=== PATIENT | female | born 1955 | race Caucasian/White ===

== ENCOUNTER → 2016-12-31 | Outpatient (REF) ==
--- NOTE | 2016-12-31 14:09 | REP ---
CERVICAL SPINE SERIES: THREE VIEWS LIMITED STUDY. HISTORY: Degenerative disc disease. No comparison cervical spine radiographs. FINDINGS: Lateral view shows reversal of the normal cervical lordosis. Cervical vertebral body heights are preserved. There is a fairly advanced degenerative spondylosis noted. Discogenic spurring is seen at C3-4, C4-5, C5-6, and C6-7, and C7-T1. The most pronounced spurring is seen at C5-6 and C6-7. There is advanced osteoarthritic facet disease bilaterally at C2-3 bilaterally. Right-sided C3-4, C4-5, and C5-6 facet hypertrophy is also noted. Open-mouth odontoid view shows mild C1-2 facet osteoarthritis. IMPRESSION: Moderate to advanced degenerative spondylosis. Reversal of the normal cervical lordosis. Signed by Shukri Flores MD 12/31/2016 02:21 P
--- NOTE | 2016-12-31 14:12 | REP ---
THORACIC SPINE SERIES: THREE VIEWS. HISTORY: Degenerative disc disease. FINDINGS: There is a granulomatous calcification in the left lower lobe of the lung. Thoracic vertebral body heights are preserved. There is some straightening. Discogenic spurring is seen in the mid and lower thoracic levels. There is anterior wedge deformity at the L1 vertebral body, which appears to be old. Secondary osteophyte formation is seen. This is unchanged from sagittal reformatted images from chest CT study [facility] dated January 02, 2016. No bony destructive lesion is seen. There are degenerative disc changes in the cervical spine as well. IMPRESSION: Degenerative spondylosis in the mid thoracic spine. Old wedge collapse deformity seen at L1, unchanged. Signed by Shukri Flores MD 12/31/2016 02:21 P
== END ==
LOC: M SMT 12:48
PROVIDERS: ATTEND Internal Medicine
DX: Z02.71 Encounter for disability determination (principal)

== ENCOUNTER 2021-02-15 13:27 | Inpatient (IN) | payer MEDICARE, OTHER ==
[~2021-02-15] VITALS: Ht 167.6 cm; Wt 64.0 kg
[2021-02-15] MEDS ORDERED: GABA600T4 PO (13:45)
[2021-02-15] MEDS ORDERED: NS 1,000 ML IV ONE ×3 (14:20→18:25)
[2021-02-15 14:49] LABS: ABG BASE EXCESS -0.8 (-2.0-2.0); ABG HCO3 21.3 MEQ/L (22.0-26.0); ABG O2 SATURATION 96.1 % (95.0-99.0); ABG PARTIAL PRESSURE CO2 29.3 mmHg (35.0-45.0); ABG PARTIAL PRESSURE O2 82.9 mmHg (75.0-100.0); ABG STANDARD HCO3 23.8 MEQ/L (22.0-26.0); ABG TOTAL CO2 22.2 MEQ/L (23.0-31.0); ABG pH (ARTERIAL) 7.479 UNITS (7.350-7.450)
[2021-02-15 15:30] LABS: BASO % 0.2 % (0.0-1.0); HEMATOCRIT 49.5 % (36.0-47.0); HEMOGLOBIN 17.3 g/dl (12.0-15.5); LYMPH # 1.4 10^3/uL (1.5-5.0); LYMPH % 7.7 % (24.0-44.0); MEAN CORPUSCULAR HEMOGLOBIN 32.7 pg (27.0-33.0); MEAN CORPUSCULAR HGB CONC 34.9 g/dl (32.0-36.5); MEAN CORPUSCULAR VOLUME 93.6 fl (80.0-96.0); MONO % 5.7 % (2.0-8.0); NEUTROPHILS # 15.4 10^3/uL (1.5-8.5); NEUTROPHILS % 85.7 % (36.0-66.0); PLATELET COUNT, AUTOMATED 254 10^3/uL (150-450); RED BLOOD COUNT 5.29 10^6/uL (4.00-5.40)
[2021-02-15 15:45] LABS: INR 0.9; PROTHROMBIN TIME 12.3 SECONDS (12.5-14.3)
[2021-02-15 15:46] LABS: PARTIAL THROMBOPLASTIN TIME 24.7 SECONDS (24.2-38.5)
[2021-02-15 16:01] LABS: OSMOLALITY SERUM 311 MOSM/KG (280-301)
[2021-02-15 16:23] LABS: ACETAMINOPHEN LEVEL < 2.0 UG/ML (10.0-30.0); ALBUMIN 3.7 GM/DL (3.2-5.2); ALT/SGPT 96 U/L (12-78); BILIRUBIN,DIRECT 0.2 MG/DL (0.0-0.2); BLOOD UREA NITROGEN 68 MG/DL (7-18); CALCIUM LEVEL 9.6 MG/DL (8.8-10.2); CARBON DIOXIDE LEVEL 26 MEQ/L (21-32); CHLORIDE LEVEL 106 MEQ/L (98-107); CK-MB VALUE MASS 48.7 NG/ML (<3.6); CPK CREATINE PHOSPHOKINASE 10308 U/L (26-192); ETHYL ALCOHOL (ETHANOL) < 0.003 % (0.000-0.010); GLOMERULAR FILTRATION RATE 28.2 (>45); GLUCOSE, FASTING 124 MG/DL (70-100); MB/CK RELATIVE INDEX 0.47 (< OR =4); POTASSIUM SERUM 3.9 MEQ/L (3.5-5.1); SALICYLATE LEVEL 3.3 MG/DL (5.0-30.0); SODIUM LEVEL 140 MEQ/L (136-145); TOTAL PROTEIN 7.3 GM/DL (6.4-8.2); TROPONIN I 0.32 NG/ML (< 0.10)
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
--- NOTE | 2021-02-15 19:15 | ECGEPIP ---
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
[2021-02-15] MEDS ORDERED: PROP10TA56 PO (19:46)
[2021-02-15] MEDS ORDERED: BUPR300T92 PO (19:46)
[2021-02-15] MEDS ORDERED: FLUO40CA PO (19:46)
[2021-02-15] MEDS ORDERED: METH20TA31 PO (19:46)
[2021-02-15] MEDS ORDERED: PANT40TA29 PO (19:46)
[2021-02-15] MEDS ORDERED: ATOR1TAB21 PO (19:46)
[2021-02-15] MEDS ORDERED: METF500T13 PO (19:47)
[2021-02-15 20:06] LABS: AMPHETAMINES LEVEL URINE NEGATIVE (NEGATIVE); BARBITURATES URINE NEGATIVE (NEGATIVE); BENZODIAZEPINES URINE NEGATIVE (NEGATIVE); CANNABINOIDS URINE NEGATIVE (NEGATIVE); COCAINE METABOLITE URINE NEGATIVE (NEGATIVE); METHADONE URINE NEGATIVE (NEGATIVE); OPIATES URINE NEGATIVE (NEGATIVE); PHENCYCLIDINE URINE NEGATIVE (NEGATIVE)
[2021-02-15] MEDS ORDERED: LIDOCAINE VISCOUS 2% SOLN 15ML UDC SSP ONE (20:55)
[2021-02-15] MEDS ORDERED: THIAMINE 100 MG TAB PO SCH (21:00)
[2021-02-15] MEDS ORDERED: NS 1,000 ML IV SCH (21:25)
--- NOTE | 2021-02-15 21:34 | HPEPDOC ---
[facility] Medical History & Physical Date of Admission February 15, 2021 Date of Service: February 15, 2021 Attending Physician: CLARA KEITH MD History and Physical CHIEF COMPLAINT: altered mental status, bruising HISTORY OF PRESENT ILLNESS: Carola Spann is a 65 year old female who presented to the ED after her daughter found her this morning with multiple new bruises and altered mental status. Daughter states the patient was known to be in her normal state of health on Thursday night when she was with her sister. Per daughter, patient was drinking that night which is not abnormal for her. Patient does not recall any details of the past few days. She states she remembers falling asleep on the couch last night and waking up with extensive bruising and pain in her mouth. She states she has not been drinking any alcohol or using any other substances. Patient states she has not been in contact with any other people since Thursday. Daughter feels this is not true and states she is going to check the patient's phone at home to better understand what has been going on the past few days. Patient states she is currently having aching over her body and pain in her mouth. PAST MEDICAL HISTORY: Back pain from degenerative disk disease HTN, not currently taking medication PAST SURGICAL HISTORY: KATTY with BSO for cysts SOCIAL HISTORY: Current smoker, cannot say how much, states 1 pack every month but daughter disagrees. Unclear alcohol use history. Patient denies alcohol intake. Daughter reports patient drinks vodka most days. History of drug abuse with reported OD on oral opiates 5 years ago per daughter. Patient denies any current use. Lives alone with 1 cat. FAMILY HISTORY: Patient unsure of family history. ALLERGIES: Please see below. REVIEW OF SYSTEMS: 10-point review of systems negative except as listed in HPI HOME MEDICATIONS: Please see below. PHYSICAL EXAMINATION: VITAL SIGNS: See below GENERAL: Alert, comfortable, in no acute distress HEENT: Normocephalic, atraumatic, sclera anicteric, moist mucous membranes, there are multiple open lesions on bilateral edges of the tongue NECK: Supple, trachea midline, no lymphadenopathy CARDIOVASCULAR: Regular rate and rhythm, normal S1 and S2. No murmurs, rubs, or gallops RESPIRATORY: Clear to auscultation bilaterally with equal air entry bilaterally. No wheezing, rhonchi, or rales. ABDOMEN: Soft, nontender, nondistended, bowel sounds present, no masses or hepatosplenomegaly appreciated EXTREMITIES: No cyanosis or edema. Pulses 2+/4 in bilateral upper and lower extremities SKIN: Bruising noted over the extremities, bilateral shoulder blades, right eye, and chest. Bilateral knees with abrasions. NEUROLOGIC: Alert and oriented x2 to person and place, she is not oriented to time. No focal deficits appreciated PSYCHIATRIC: Mood and affect appropriate LABORATORY DATA: See below. IMAGING: (per radiologist reports) - CT cervical spine 1. No acute abnormality. 2. Chronic findings as discussed above - CT head 1. Mildly limited exam due to motion artifact 2. Small area of subcortical edema in the right frontal lobe of uncertain etiology. A follow-up MRI is suggested. - CT lumbar spine No acute fracture in the lumbar spine. - Maxillofacial CT No acute fracture. - CT Thoracic spine 1. Degenerative changes as above. 2. No acute thoracic spinal bony abnormality identified. 3. Please see the lumbar spine CT report of the same date for the lumbar spine findings. - CT Abdomen/pelvis 1. Lack of IV contrast reduces sensitivity to abdominal solid visceral organ traumatic injury. IV contrast enhanced imaging may add additional useful information if not contraindicated. 2. Possible gastritis. Clinical correlation with the patient's specific symptomatology is recommended. 3. Right renal calyceal lithiasis. 4. Prior hysterectomy. 5. No acute injury identified. 6. Please see the CT chest report of the same date for additional findings. - CT Chest 1. No acute injury identified. 2. Pulmonary emphysema. 3. Coronary atherosclerosis. 4. Minimal pericardial effusion. 5. Please see the abdomen/pelvis CT report of the same date for additional findings. - Elbow XR There is no acute fracture, dislocation, subluxation, or joint effusion. - Humerus XR Chronic changes - Wrist XR No acute fracture or destructive osseous lesion. - Knee XR Chronic changes bilateral MICROBIOLOGY: Please see below. ASSESSMENT: 65 year old female with PMHx of back pain, HTN, and drug/alcohol abuse, presents with multiple bruises and altered mentation, found to have elevated CPK and Cr, admitted for treatment of rhabdomyolysis and CALLIE PLAN: # Rhabdomyolysis - 2/2 physical trauma vs intoxication - s/p 3 L IV fluid bolus in ED. Continue IV fluids at 200ml/hr - monitor electrolytes and replete as appropriate - monitor on telemetry # CALLIE - Likely prerenal 2/2 above. Check urine electrolytes - UA shows possible infection, patient asymptomatic, will hold off on abx pending urine culture - IV fluids as above # AMS - tox screen negative. alcohol level negative - may be related to rhabdomyolysis vs baseline dementia vs recent trauma - blood cultures pending, urine culture pending. Currently low suspicion for infection, no antibiotics. - ammonia level slightly elevated, recheck on AM labs - CT head reveals small abnormality, ordered f/u MRI brain # Bruising likely 2/2 trauma - extensive imaging revealed no acute concerns - pt with no memory of how bruising occurred. - tongue lesions likely could be from biting down considering their location vs [place] less likely as the salazar are only on the side of the tongue and not the top. - based on the history and PE, high suspicion of abuse. PFS consult. # Alcohol abuse - no apparent withdrawal symptoms currently - monitor CIWA - IV thiamin 500mg TID x 3 days - PO folic acid and multivitamin # Transaminitis - pattern suggestive of alcoholic hepatitis, trend daily # Back pain - hold gabapentin for now due to AMS DVT prophylaxis: sc heparin Disposition: admitted to med/surg pending clinical improvement Vital Signs Vital Signs Date Time Temp Pulse Resp B/P (MAP) Pulse Ox O2 Delivery O2 Flow Rate FiO2 02/15/21 20:12 94 16 97 Room Air 02/15/21 19:38 160/74 (102) 02/15/21 13:29 97.2 Laboratory Data Labs 24H Laboratory Tests 2 02/15/21 13:27: Blood Gas Bicarbonate Standard 23.8, Arterial Blood pH 7.479H, Arterial Blood Partial Pressure CO2 29.3L, Arterial Blood Partial Pressure O2 82.9, Arterial Blood Total CO2 22.2L, Arterial Blood HCO3 21.3L, Arterial Blood Base Excess - 0.8, Arterial Blood Oxygen Saturation 96.1 02/15/21 15:08: Immature Granulocyte % (Auto) 0.7, Neutrophils (%) (Auto) 85.7H, Lymphocytes (%) (Auto) 7.7L, Monocytes (%) (Auto) 5.7, Eosinophils (%) (Auto) 0.0, Basophils (%) (Auto) 0.2, Neutrophils # (Auto) 15.4H, Lymphocytes # (Auto) 1.4L, Monocytes # (Auto) 1.0H, Eosinophils # (Auto) 0.0, Basophils # (Auto) 0.0, Nucleated Red Blood Cells % (auto) 0.0, Prothrombin Time 12.3, Prothromb Time International Ratio 0.90, Activated Partial Thromboplast Time 24.7L, Anion Gap 8, Glomerular Filtration Rate 28.2L, Osmolality 311H, Lactic Acid Level 2.0, Calcium Level 9.6, Total Bilirubin 1.0, Direct Bilirubin 0.2, Aspartate Amino Transf (AST/SGOT) 314H, Alanine Aminotransferase (ALT/SGPT) 96H, Alkaline Phosphatase 86, Ammonia 35H, Total Creatine Kinase 97378L, Creatine Kinase MB 48.7H, Creatine Kinase MB Relative Index 0.47, Troponin I 0.32H, Total Protein 7.3, Albumin 3.7, Albumin/Globulin Ratio 1.0L, Thyroid Stimulating Hormone (TSH) 1.570, Salicylates Level 3.3L, Acetaminophen Level < 2.0L, Ethyl Alcohol Level < 0.003 02/15/21 17:06: Urine Color YELLOW, Urine Appearance CLOUDYH, Urine pH 5.0, Urine Specific [place] 1.020, Urine Protein 2+H, Urine Glucose (UA) NEGATIVE, Urine Ketones NEGATIVE, Urine Blood 2+H, Urine Nitrite NEGATIVE, Urine Bilirubin NEGATIVE, Urine Urobilinogen 0.2, Urine Leukocyte Esterase 1+H, Urine WBC (Auto) 12H, Ur ine RBC (Auto) 2, Urine Hyaline Casts (Auto) 29, Urine Bacteria (Auto) NEGATIVE, Urine Squamous Epithelial Cells 2, Urine Mucus (Auto) SMALL, Urine Sperm (Auto) , Urine Opiates Screen NEGATIVE, Urine Methadone Screen NEGATIVE, Urine Barbiturates Screen NEGATIVE, Urine Phencyclidine Screen NEGATIVE, Urine Amphetamines Screen NEGATIVE, Urine Benzodiazepines Screen NEGATIVE, Urine Cocaine Metabolite Screen NEGATIVE, Urine Cannabinoids Screen NEGATIVE CBC/BMP Laboratory Tests 02/15/21 15:08 Microbiology Microbiology 02/15/21 Respiratory Virus Panel (PCR) ([facility]) - Final, Complete 02/15/21 Blood Culture, Received Pending 02/15/21 Urine Culture, Received Pending 02/15/21 Blood Culture, Received Pending Home Medications Scheduled Gabapentin (Gabapentin) 600 Mg Tablet, 600 MG PO TID Allergies Coded Allergies: No Known Allergies (Verified Allergy, Unknown, 02/15/21) GME ATTESTATION GME ATTESTATION My faculty preceptor for this patient encounter was physically present during the encounter and was fully available. All aspects of the patient interview, examination, medical decision making process, and medical care plan development were reviewed and approved by the faculty preceptor. The faculty preceptor is aware and concurs with the plan as stated in the body of this note and will attest to such by his/her cosignature. ATTENDING NOTE I, Diana Keith, have independently examined this patient and performed my own physical exam, as well as reviewed the documentation and edited where necessary. I have discussed in detail with the resident / student the findings and plan of treatment as documented by the resident / student and edited their note. I agree with their findings and treatment plan and have edited their documentation. I will continue to follow the patient during this hospital stay. BENITA MCGOWAN D.O. February 15, 2021 21:34 CLARA KEITH MD February 18, 2021 02:25
[2021-02-15] MEDS ORDERED: THIAMINE 200MG/2ML VIAL (J3411 PER 100MG) IV SCH (21:40)
[2021-02-15 22:41] LABS: POTASSIUM RANDOM URINE 42.6 MEQ/L; SODIUM,RANDOM URINE < 10 MEQ/L
[2021-02-15 23:30] VITALS: BP 138/63
[2021-02-15] MEDS: THIAMINE INJection 500 MG in NS 100 ML IV SCH (23:42)
[2021-02-16 02:21] LABS: CREATININE FOR GFR 0.99 MG/DL (0.55-1.30); GLOMERULAR FILTRATION RATE 59.9 (>45); MAGNESIUM LEVEL 1.6 MG/DL (1.8-2.4); POTASSIUM SERUM 3.1 MEQ/L (3.5-5.1); TROPONIN I 0.27 NG/ML (< 0.10)
[2021-02-16] MEDS ORDERED: MAG SULF 1GM/100ML (MAG RUN) 1 GM in IV 1 EA IV ONE (02:35)
[2021-02-16] MEDS ORDERED: POTASSIUM CHLORIDE 10 MEQ SR TABLET PO ONE (02:35)
[2021-02-16] MEDS: LORazepam 2 MG TAB PO PRN (03:24)
[2021-02-16 03:27] VITALS: BP 151/72
[2021-02-16 03:28] VITALS: BP 151/72
[2021-02-16] MEDS: KCL 20MEQ in NS 1000ML 1,000 ML IV SCH ×4 (03:41→17:47)
[2021-02-16 05:05] LABS: HEMATOCRIT 36.9 % (36.0-47.0); MEAN CORPUSCULAR HGB CONC 34.4 g/dl (32.0-36.5); MEAN CORPUSCULAR VOLUME 95.8 fl (80.0-96.0); PLATELET COUNT, AUTOMATED 201 10^3/uL (150-450); RED BLOOD COUNT 3.85 10^6/uL (4.00-5.40); WHITE BLOOD COUNT 13.6 10^3/uL (4.0-10.0)
[2021-02-16 05:06] LABS: HEMOGLOBIN 12.7 g/dl (12.0-15.5)
[2021-02-16 05:50] LABS: ALBUMIN 2.8 GM/DL (3.2-5.2); ALT/SGPT 91 U/L (12-78); BILIRUBIN,TOTAL 0.8 MG/DL (0.2-1.0); BLOOD UREA NITROGEN 34 MG/DL (7-18); CALCIUM LEVEL 8.2 MG/DL (8.8-10.2); CARBON DIOXIDE LEVEL 27 MEQ/L (21-32); CHLORIDE LEVEL 117 MEQ/L (98-107); GLOMERULAR FILTRATION RATE > 60.0 (>45); GLUCOSE, FASTING 108 MG/DL (70-100); POTASSIUM SERUM 3.5 MEQ/L (3.5-5.1); SODIUM LEVEL 147 MEQ/L (136-145); TOTAL PROTEIN 5.5 GM/DL (6.4-8.2)
[2021-02-16] MEDS: HEPARIN SOD (PORCINE) 5000UNITS/ML 1ML VIAL/SYRINGE SC SCH ×3 (06:47→21:37)
[2021-02-16] MEDS: THIAMINE INJection 500 MG in NS 100 ML IV SCH ×3 (11:10→21:37)
[2021-02-16] MEDS: MULTIVITAMINS/MINERALS THERAP 1 TAB PO SCH (11:10)
[2021-02-16] MEDS: FOLIC ACID 1 MG TAB PO SCH (11:10)
[2021-02-16 12:00] VITALS: BP 156/66
[2021-02-16] MEDS ORDERED: ISOVUE-370 76% 100ML VIAL As Ordered ONE (14:36)
[2021-02-16] MEDS: MAGIC MOUTHWASH SUSPENSION BTL SSP PRN ×2 (15:32→21:40)
--- NOTE | 2021-02-16 15:56 | REPVR ---
PROCEDURE INFORMATION: Exam: CT Head Without And With Contrast Exam date and time: 02/16/2021 2:42 PM Age: 65 years old Clinical indication: RT frontal lobe edema. TECHNIQUE: Imaging protocol: Computed tomography of the head without and with intravenous contrast. Radiation optimization: All CT scans at this facility use at least one of these dose optimization techniques: automated exposure control; mA and/or kV adjustment per patient size (includes targeted exams where dose is matched to clinical indication); or iterative reconstruction. Contrast material: ISOVUE 370; Contrast volume: 75 ml; Contrast route: INTRAVENOUS (IV); COMPARISON: CT Head without contrast 02/15/2021 4:33 PM FINDINGS: Brain: Low density in the right frontal lobe was described on patient's prior CT scan and is likely due to volume averaging through a prominent sulcus. This is not definite. Cerebral ventricles: No ventriculomegaly. Bones/joints: Unremarkable. No acute fracture. Paranasal sinuses: Visualized sinuses are unremarkable. No fluid levels. Mastoid air cells: Visualized mastoid air cells are well aerated. Soft tissues: There is a left parietal developmental venous anomaly. IMPRESSION: Low density in the right frontal lobe was described on patient's prior CT scan and is likely due to volume averaging through a prominent sulcus. This is not definite. If this happens to correspond to patient's clinical symptoms, follow-up MRI would be recommended. Electronically signed by: Michelet Cooper On 02/16/2021 15:55:53 PM
[2021-02-16 16:00] VITALS: BP 198/88
[2021-02-16] MEDS: amLODIPine 5 MG TAB PO SCH (17:04)
[2021-02-16] MEDS: LIDOCAINE VISCOUS 2% SOLN 15ML UDC SSP PRN (17:47)
--- NOTE | 2021-02-16 19:32 | IPNPDOC ---
Subjective Date Seen The patient was seen on 02/16/21. Subjective Chief Complaint/HPI Mrs. Spann is a 65 year old female with history of smoking and alcohol use who is here for confusion and AMS. This morning, attempted MRI, but patient could not remember that she was in the MRI and kept moving. Spoke with neurology. Neurology recommended trying CT head without and with contrast if we can't get MRI today. Otherwise, saw her again this afternoon with daughter present. Looked about tongue. Patient has two large white ulcers of tongue which are painful. Due to her history of smoking and alcohol use possible oral cancer. Objective Physical Examination General Exam: Positive: Alert, Cooperative Eye Exam: Negative: Sclera icteric ENT Exam: Positive: Other ENT (large ulcers on tongue) Neck Exam: Positive: Supple Chest Exam: Positive: Clear to auscultation Heart Exam: Positive: Rate Normal, Regular Rhythm Abdomen Exam: Positive: Normal bowel sounds, Soft; Negative: Tenderness Extremity Exam: Negative: Edema Neuro Exam: Positive: Normal Speech Psych Exam: Positive: Mental status NL, Mood NL Assessment /Plan Assessment Mrs. Spann is a 65 year old female with history of smoking and alcohol use who is here for confusion and AMS. This morning she was still confused, but appeared better by this afternoon. Otherwise, she still has rhabdomyolysis. Will check CPK tomorrow. Patient has tongue pain and large while ulcers on tongue. Spoke with ENT. They recommended biopsy outpatient. Plan/VTE VTE Prophylaxis Ordered?: Yes Plan 1. Rhabdomyolysis -IVF -Will check CPK tomorrow 2. CALLIE -2/2 rhabdomyolysis -Improved 3. AMS -CT head demonstrate abnormality -Will try to obtain MRI tomorrow 4. Tongue ulcer -Viral vs Cancer -Risk factors include smoking and alcohol -Spoke with ENT, would need to do outpatient -Magic mouthwash and lidocaine viscus for pain control 5. Alcohol abuse -CIWA -Thiamine, folic acid, and multivitamin 6. DVT ppx -Subq heparin Disposition: Pending improvement in rhabdomyolysis. Would also try to get MRI again. VS, I&O, 24H, Fishbone Vital Signs/I&O Vital Signs Date Time Temp Pulse Resp B/P (MAP) Pulse Ox O2 Delivery O2 Flow Rate FiO2 02/16/21 17:04 84 198/88 02/16/21 12:00 98.1 19 95 Room Air I&O- Last 24 Hours up to 6 AM 02/16/21 06:00 Intake Total 3962 ml Output Total 150 ml Balance 3812 ml Laboratory Data 24H LABS Laboratory Tests 2 02/16/21 01:43: Anion Gap 4L, Glomerular Filtration Rate 59.9, Calcium Level 8.0#L, Magnesium Level 1.6L, Troponin I 0.27H 02/16/21 04:46: Anion Gap 3L, Glomerular Filtration Rate > 60.0, Calcium Level 8.2L, Nucleated Red Blood Cells % (auto) 0.0, Total Bilirubin 0.8, Aspartate Amino Transf (AST/SGOT) 259H, Alanine Aminotransferase (ALT/SGPT) 91H, Alkaline Phosphatase 62, Ammonia 37H, Total Protein 5.5#L, Albumin 2.8#L, Albumin/Globulin Ratio 1.0L CBC/BMP Laboratory Tests 02/16/21 01:43 02/16/21 04:46 Microbiology Microbiology 02/15/21 Respiratory Virus Panel (PCR) ([facility]) - Final, Complete 02/15/21 Blood Culture - Preliminary, Resulted No growth after 24 hours . All specim... 02/15/21 Urine Culture, Received Pending 02/15/21 Blood Culture - Preliminary, Resulted No growth after 24 hours . All specim... GEN MUELLER DO February 16, 2021 19:32
[2021-02-16 21:35] VITALS: BP 177/84
[2021-02-17] MEDS: KCL 20MEQ in NS 1000ML 1,000 ML IV SCH ×2 (00:47→06:16)
[2021-02-17] MEDS: ACETAMINOPHEN TAB 650MG DOSE (2X325MG) PO PRN ×2 (00:48→20:20)
[2021-02-17 04:37] VITALS: BP 168/76
[2021-02-17 05:07] LABS: HEMATOCRIT 35.9 % (36.0-47.0); HEMOGLOBIN 12.3 g/dl (12.0-15.5); MEAN CORPUSCULAR HEMOGLOBIN 33.5 pg (27.0-33.0); MEAN CORPUSCULAR HGB CONC 34.3 g/dl (32.0-36.5); MEAN CORPUSCULAR VOLUME 97.8 fl (80.0-96.0); PLATELET COUNT, AUTOMATED 214 10^3/uL (150-450); RED BLOOD COUNT 3.67 10^6/uL (4.00-5.40); WHITE BLOOD COUNT 8.5 10^3/uL (4.0-10.0)
[2021-02-17 05:51] LABS: BLOOD UREA NITROGEN 10 MG/DL (7-18); CARBON DIOXIDE LEVEL 28 MEQ/L (21-32); CHLORIDE LEVEL 116 MEQ/L (98-107); CPK CREATINE PHOSPHOKINASE 3738 U/L (26-192); CREATININE FOR GFR 0.64 MG/DL (0.55-1.30); GLOMERULAR FILTRATION RATE > 60.0 (>45); GLUCOSE, FASTING 111 MG/DL (70-100); MAGNESIUM LEVEL 1.3 MG/DL (1.8-2.4); POTASSIUM SERUM 3.6 MEQ/L (3.5-5.1); SODIUM LEVEL 147 MEQ/L (136-145)
[2021-02-17] MEDS: HEPARIN SOD (PORCINE) 5000UNITS/ML 1ML VIAL/SYRINGE SC SCH ×3 (06:16→21:51)
[2021-02-17] MEDS: MAG SULF 1GM/100ML (MAG RUN) 1 GM in IV 1 EA IV SCH ×2 (06:16→08:19)
[2021-02-17 08:00] VITALS: BP 164/76
[2021-02-17] MEDS: amLODIPine 5 MG TAB PO SCH (08:18)
[2021-02-17] MEDS: FOLIC ACID 1 MG TAB PO SCH (08:18)
[2021-02-17] MEDS: MULTIVITAMINS/MINERALS THERAP 1 TAB PO SCH (08:18)
[2021-02-17] MEDS: THIAMINE INJection 500 MG in NS 100 ML IV SCH (08:19)
[2021-02-17] MEDS: LIDOCAINE VISCOUS 2% SOLN 15ML UDC SSP PRN ×2 (09:00→13:00)
[2021-02-17] MEDS: MAGIC MOUTHWASH SUSPENSION BTL SSP PRN (09:00)
--- NOTE | 2021-02-17 12:30 | REPVR ---
PROCEDURE INFORMATION: Exam: MR Head Without Contrast Exam date and time: 02/17/2021 7:13 AM Age: 65 years old Clinical indication: Altered mental status/memory loss; Confusion or disorientation; Patient HX: HX fall, AMS; Additional info: Right frontal lobe abnormality seen on CT TECHNIQUE: Imaging protocol: MR of the head without contrast. COMPARISON: CT Head W/O FOLL BY WITH CONTR 02/16/2021 2:40 PM FINDINGS: Brain: Two small areas of restricted diffusion in the high right parietal lobe measuring up to 4 mm representing embolic acute infarcts. Additionally there is a small area of restricted diffusion in the right occipital lobe may represent another small area acute infarct. Somewhat confluent areas of symmetrical FLAIR signal abnormalities in bilateral parietal lobes and and occipital lobes. Mild small vessel ischemic changes. Cerebral ventricles: Ventricles and sulci are enlarged representing moderate volume loss. Bones/joints: Unremarkable. Paranasal sinuses: Mucosal thickening of the ethmoidal air cells and bilateral maxillary sinuses. Mastoid air cells: Normal as visualized. No mastoid effusion. Orbital cavity: Unremarkable. Soft tissues: Unremarkable. IMPRESSION: Two small areas of restricted diffusion in the high right parietal lobe measuring up to 4 mm representing embolic acute infarcts. Additionally there is a small area of restricted diffusion in the right occipital lobe may represent another small area acute infarct. Somewhat confluent areas of symmetrical FLAIR signal abnormalities in bilateral parietal lobes and and occipital lobes. Findings are nonspecific, differential diagnosis would include encephalopathy, metabolic causes, hypertension, clinical correlation is recommended. Critical findings: Findings discussed with Dr. Maurer at the time of interpretation. Electronically signed by: Casie Ruggiero On 02/17/2021 12:29:40 PM
[2021-02-17] MEDS ORDERED: ISOVUE-370 76% 100ML VIAL As Ordered ONE (14:24)
--- NOTE | 2021-02-17 15:34 | REP ---
INDICATION: Assess stenosis COMPARISON: None TECHNIQUE: Carotid ultrasonography was performed bilaterally FINDINGS: There is a minimal amount of echogenic material seen along the carotid arterial marshall some of which casts and acoustic shadow. Right: CCA systolic 87.4 centimeters/second: CCA diastolic: 21.6 centimeters/second ICA systolic: 85.1 centimeters/second ICA diastolic: 18.0 centimeters/second ICA CCA ratio: 0.7 Left: CCA systolic: 120 centimeters/second CCA diastolic: 20 centimeters/second ICA systolic: 62.1 centimeters/second ICA diastolic: 17.3 centimeters/second ICA CCA ratio: 0.5 Vertebral artery: Right: Antegrade flow left: Antegrade flow IMPRESSION: According to the SRU criteria there is less than 50% stenosis of the internal carotid artery bilaterally. <Electronically signed by Aydin Morales > 02/17/21 [id number]
[2021-02-17] MEDS: ASPIRIN 81MG ENTERIC TABLET PO SCH (15:39)
[2021-02-17] MEDS: LR 1,000 ML IV SCH (15:40)
--- NOTE | 2021-02-17 16:18 | REPVR ---
PROCEDURE INFORMATION: Exam: CT Angiography Head With Contrast, Arteriography Exam date and time: 02/17/2021 2:51 PM Age: 65 years old Clinical indication: Condition or disease; Infarction; Additional info: CVA TECHNIQUE: Imaging protocol: Computed tomography angiography of the head with contrast. Exam focused on the arteries. 3D rendering (Not supervised by radiologist): MIP and/or 3D reconstructed images were created by the technologist. Radiation optimization: All CT scans at this facility use at least one of these dose optimization techniques: automated exposure control; mA and/or kV adjustment per patient size (includes targeted exams where dose is matched to clinical indication); or iterative reconstruction. Contrast material: ISOVUE 370; Contrast volume: 75 ml; Contrast route: INTRAVENOUS (IV); COMPARISON: CT Head W/O FOLL BY WITH CONTR 02/16/2021 2:40 PM FINDINGS: ANTERIOR CIRCULATION: Right internal carotid artery: There is mild calcification of the intracranial right internal carotid artery. No significant degrees of stenosis, thrombosis, or occlusion. No evidence of aneurysm. Right middle cerebral artery: Unremarkable. No occlusion or significant stenosis. No aneurysm. Right anterior cerebral artery: Unremarkable. No occlusion or significant stenosis. No aneurysm. Left internal carotid artery: There is mild calcification of the intracranial left internal carotid artery. No significant degrees of stenosis, thrombosis, or occlusion. No evidence of aneurysm. Left middle cerebral artery: Unremarkable. No occlusion or significant stenosis. No aneurysm. Left anterior cerebral artery: A1 segment of left anterior cerebral artery is small and A2 segment is therefore predominately supplied from contralateral side via anterior communicating artery. No stenosis or occlusion. No evidence of aneurysm. POSTERIOR CIRCULATION: Right vertebral artery: Unremarkable. No occlusion or significant stenosis. No aneurysm. Left vertebral artery: Unremarkable. No occlusion or significant stenosis. No aneurysm. Basilar artery: Unremarkable. No occlusion or significant stenosis. No aneurysm. Right posterior cerebral artery: Unremarkable. No occlusion or significant stenosis. No aneurysm. Left posterior cerebral artery: P1 segment of left posterior cerebral artery is small with a posterior communicating artery supplying P2 segment. No stenosis or occlusion. No evidence of aneurysm. Veins: Cerebral venous structures are intact without thrombosis. Note is made of a left frontal developmental venous anomaly draining from subependymal region to left cortical vein. IMPRESSION: 1. No evidence of significant intracranial stenosis, occlusion, or thrombosis. 2. Left frontal developmental venous anomaly. Electronically signed by: Nan Navarro On 02/17/2021 16:17:55 PM
[2021-02-17] MEDS: hydrALAZINE 20MG/ML 1ML VIAL (J0360 PER 20MG) IV PRN (17:23)
[2021-02-17] MEDS ORDERED: ONDANSETRON 4MG/2ML VIAL As Ordered ONE (17:42)
[2021-02-17] MEDS ORDERED: ONDANSETRON 4MG/2ML VIAL IV PRN (17:45)
[2021-02-17 20:00] VITALS: BP 167/92
--- NOTE | 2021-02-17 20:26 | IPNPDOC ---
Subjective Date Seen The patient was seen on 02/17/21. Subjective Chief Complaint/HPI Mrs. Spann is a 65 year old female with history of smoking and alcohol use who is here for confusion and AMS. This morning, she still reports tongue pain and pain with swallowing. We were able to obtain MRI brain which demonstrated two small embolic strokes. Ordered for CT angio head and US carotids which were both negative for significant stenosis. Otherwise, this afternoon, her tongue looks better. Objective Physical Examination General Exam: Positive: Alert, Cooperative Eye Exam: Negative: Sclera icteric ENT Exam: Positive: Other ENT (large ulcers on tongue) Neck Exam: Positive: Supple Chest Exam: Positive: Clear to auscultation Heart Exam: Positive: Rate Normal, Regular Rhythm Abdomen Exam: Positive: Normal bowel sounds, Soft; Negative: Tenderness Extremity Exam: Negative: Edema Neuro Exam: Positive: Normal Speech Psych Exam: Positive: Mental status NL, Mood NL Assessment /Plan Assessment Mrs. Spann is a 65 year old female with history of smoking and alcohol use who is here for confusion and AMS. This morning she was still confused, but appeared better by this afternoon. Otherwise, she still has rhabdomyolysis. Patient has tongue pain and large while ulcers on tongue. Spoke with ENT. They recommended biopsy outpatient. Re-evaluated tongue on 02/17. The white part of the ulcer cleared up, but still ulcer present with red base. Would still recommend patient following up with ENT outpatient. MRI demonstrates two small acute embolic stroke. Located in the right parietal lobe and right occipital lobe. CT angio head and US carotid was negative for stenosis. Pending echocardiogram, HbA1c, and lipid panel. Starting aspirin today. No statin due to rhabdomyolysis. Plan/VTE VTE Prophylaxis Ordered?: Yes Plan 1. Rhabdomyolysis -IVF -Will check CPK tomorrow 2. CALLIE -2/2 rhabdomyolysis -Improved 3. CVA -MRI demonstrates two small acute embolic stroke. Located in the right parietal lobe and right occipital lobe. -CT angio head and US carotid was negative for stenosis -Pending echocardiogram, HbA1c, and lipid panel -Starting aspirin today. No statin due to rhabdomyolysis. 4. Tongue ulcer -Viral vs Cancer -Risk factors include smoking and alcohol -Spoke with ENT, would need to do outpatient -Magic mouthwash and lidocaine viscus for pain control 5. Alcohol abuse -CIWA -Thiamine, folic acid, and multivitamin 6. DVT ppx -Subq heparin Disposition: Pending improvement in rhabdomyolysis. Pending rest of stroke work up. Patient feels weak ambulating. Would order PT. Patient also concerned of swallowing due to odynophagia. Will order Swallow eval. VS, I&O, 24H, Fishbone Vital Signs/I&O Vital Signs Date Time Temp Pulse Resp B/P (MAP) Pulse Ox O2 Delivery O2 Flow Rate FiO2 02/17/21 20:00 97.5 79 18 167/92 (117) 94 Room Air I&O- Last 24 Hours up to 6 AM 02/17/21 06:00 Intake Total 2150 ml Output Total 5600 ml Balance -3450 ml Laboratory Data 24H LABS Laboratory Tests 2 02/17/21 04:32: Nucleated Red Blood Cells % (auto) 0.0, Anion Gap 3L, Glomerular Filtration Rate > 60.0, Calcium Level 8.0L, Magnesium Level 1.3L, Total Creatine Kinase 3738H CBC/BMP Laboratory Tests 02/17/21 04:32 Microbiology Microbiology 02/15/21 Respiratory Virus Panel (PCR) ([facility]) - Final, Complete 02/15/21 Blood Culture - Preliminary, Resulted No Growth after 48 hours. All Specime... 02/15/21 Urine Culture - Final, Complete 02/15/21 Blood Culture - Preliminary, Resulted No Growth after 48 hours. All Specime... GEN MUELLER DO February 17, 2021 20:26
[2021-02-18 00:20] VITALS: BP 169/88
[2021-02-18] MEDS: LR 1,000 ML IV SCH ×2 (00:50→08:19)
[2021-02-18 04:59] VITALS: BP 171/76
[2021-02-18] MEDS: HEPARIN SOD (PORCINE) 5000UNITS/ML 1ML VIAL/SYRINGE SC SCH ×3 (05:10→21:37)
[2021-02-18] MEDS: ACETAMINOPHEN TAB 650MG DOSE (2X325MG) PO PRN ×4 (05:11→20:00)
[2021-02-18] MEDS: MAGIC MOUTHWASH SUSPENSION BTL SSP PRN ×3 (05:12→20:01)
[2021-02-18 05:37] LABS: HEMATOCRIT 39.6 % (36.0-47.0); HEMOGLOBIN 13.6 g/dl (12.0-15.5); MEAN CORPUSCULAR HEMOGLOBIN 33.7 pg (27.0-33.0); MEAN CORPUSCULAR HGB CONC 34.3 g/dl (32.0-36.5); PLATELET COUNT, AUTOMATED 242 10^3/uL (150-450); RED BLOOD COUNT 4.04 10^6/uL (4.00-5.40); WHITE BLOOD COUNT 6.2 10^3/uL (4.0-10.0)
[2021-02-18 05:56] LABS: HEMOGLOBIN A1c 5.3 %
[2021-02-18 06:27] LABS: BLOOD UREA NITROGEN 12 MG/DL (7-18); CALCIUM LEVEL 9.6 MG/DL (8.8-10.2); CARBON DIOXIDE LEVEL 31 MEQ/L (21-32); CHLORIDE LEVEL 109 MEQ/L (98-107); CHOLESTEROL LEVEL 197 MG/DL (<200); CHOLESTEROL RISK RATIO 2.855 (<5); CPK CREATINE PHOSPHOKINASE 1524 U/L (26-192); CREATININE FOR GFR 0.61 MG/DL (0.55-1.30); GLOMERULAR FILTRATION RATE > 60.0 (>45); GLUCOSE, FASTING 94 MG/DL (70-100); HDL CHOLESTEROL 69 MG/DL (>40); LDL CHOLESTEROL 105 MG/DL (<100); NON-HDL-C 128 MG/DL; POTASSIUM SERUM 3.9 MEQ/L (3.5-5.1); SODIUM LEVEL 144 MEQ/L (136-145); TRIGLYCERIDES LEVEL 113 MG/DL (<150)
[2021-02-18 08:00] VITALS: BP 172/86
[2021-02-18] MEDS: ASPIRIN 81MG ENTERIC TABLET PO SCH (08:15)
[2021-02-18] MEDS: THIAMINE 100 MG TAB PO SCH (08:16)
[2021-02-18] MEDS: FOLIC ACID 1 MG TAB PO SCH (08:16)
[2021-02-18] MEDS: MULTIVITAMINS/MINERALS THERAP 1 TAB PO SCH (08:16)
[2021-02-18] MEDS: amLODIPine 5 MG TAB PO SCH (08:16)
[2021-02-18] MEDS: LIDOCAINE VISCOUS 2% SOLN 15ML UDC SSP PRN ×2 (08:23→14:45)
[2021-02-18 12:00] VITALS: BP 162/72
[2021-02-18] MEDS ORDERED: SLF 3 ML SYR IV PRN (15:15)
[2021-02-18] MEDS: hydrALAZINE 20MG/ML 1ML VIAL (J0360 PER 20MG) IV PRN (16:05)
[2021-02-18 18:00] VITALS: BP 200/88
--- NOTE | 2021-02-18 18:50 | IPNPDOC ---
Subjective Date Seen The patient was seen on 02/18/21. Subjective Chief Complaint/HPI Mrs. Spann is a 65 year old female with history of smoking and alcohol use who is here for confusion and AMS. This morning, she denies any chest pain or dyspnea, but reports more hoarseness today. Her tongue also still hurts. Swallow therapy evaluated patient. Patient is safe to swallow. Physical therapy notice she was unstable on her feet. Recommended another day of physical therapy. In the afternoon, spoke with family. Family requested that neurology see patient. Patient is not at baseline. Prior she was very independent. Spoke with Dr. Duran who will see the patient. recommendations appreciated. Objective Physical Examination General Exam: Positive: Alert, Cooperative Eye Exam: Negative: Sclera icteric ENT Exam: Positive: Other ENT (large ulcers on tongue) Neck Exam: Positive: Supple Chest Exam: Positive: Clear to auscultation Heart Exam: Positive: Rate Normal, Regular Rhythm Abdomen Exam: Positive: Normal bowel sounds, Soft; Negative: Tenderness Extremity Exam: Negative: Edema Neuro Exam: Positive: Normal Speech Psych Exam: Positive: Mental status NL, Mood NL Assessment /Plan Assessment Mrs. Spann is a 65 year old female with history of smoking and alcohol use who is here for confusion and AMS. Unclear cause for patient's AMS. Utox negative and alcohol level was negative. MRI brain demonstrated two small embolic stroke. Located in the right parietal lobe and right occipital lobe. Family requested neurology consultation. Spoke with Dr. Duran who will see the patient. Recommendations appreciated Patient has tongue pain and large while ulcers with red base on tongue. With her history of smoking and alcohol, risk for cancer. Spoke with ENT. They recommended biopsy outpatient. Re-evaluated tongue on 02/17. The white part of the ulcer cleared up, but still ulcer present with red base. Ulcer possibly from viral infection. May also explain AMS. Ordered for HIV, HSV, and syphilis. Patient also has odynophagia. Possibly viral which started on tongue. Ordered HIV, HSV, and syphilis. Patient reports hoarseness. Also recommended patient to follow up with ENT for hoarseness. Stroke work up negative. CT angio head and US carotid was negative for stenosis. HbA1c 5.3. LDL fasting 105. Patient may benefit from statin, but would like CPK to improve a little more before starting statin. Pending echocardiogram. On aspirin. Plan/VTE VTE Prophylaxis Ordered?: Yes Plan 1. Rhabdomyolysis -Improved, D/C fluids 2. CALLIE -2/2 rhabdomyolysis -Resolved 3. CVA -MRI demonstrates two small acute embolic stroke. Located in the right parietal lobe and right occipital lobe. -CT angio head and US carotid was negative for stenosis -Pending echocardiogram -HbA1c 5.3. LDL fasting 105. Patient may benefit from statin, but would like CPK to improve a little more before starting statin. -Pending echocardiogram. -On aspirin. 4. Tongue ulcer -Viral vs Cancer -Risk factors include smoking and alcohol -Spoke with ENT, would need to do outpatient -Magic mouthwash and lidocaine viscus for pain control -HSV, HIV, and syphilis 5. Odynophagia -Possible viral infection -Passed swallow evaluation -HSV, HIV, and syphilis ordered 6. Hoarseness -Has not improved -Would recommend patient also see ENT outpatient for hoarseness. 7. Alcohol abuse -CIWA -Thiamine, folic acid, and multivitamin 8. DVT ppx -Subq heparin Disposition: Physical therapy worked with patient and patient will need an additional day. May need a longer stay if patient declines. Neurology consulted. Recommendations appreciated. VS, I&O, 24H, Fishbone Vital Signs/I&O Vital Signs Date Time Temp Pulse Resp B/P (MAP) Pulse Ox O2 Delivery O2 Flow Rate FiO2 02/18/21 16:05 189/89 02/18/21 12:00 98.3 69 18 94 Room Air I&O- Last 24 Hours up to 6 AM 02/18/21 06:00 Intake Total 4420 ml Output Total 2150 ml Balance 2270 ml Laboratory Data 24H LABS Laboratory Tests 2 02/18/21 05:09: Nucleated Red Blood Cells % (auto) 0.0, Anion Gap 4L, Glomerular Filtration Rate > 60.0, Estimated Mean Plasma Glucose 105, Hemoglobin A1c 5.3, Calcium Level 9.6#, Total Creatine Kinase 1524H, Triglycerides Level 113, Total Cholesterol 197, LDL Cholesterol 105H, Non-HDL Cholesterol (LDL + VLDL) 128, Total HDL Cholesterol 69, Cholesterol/HDL Ratio 2.855 CBC/BMP Laboratory Tests 02/18/21 05:09 Microbiology Microbiology 02/15/21 Respiratory Virus Panel (PCR) ([facility]) - Final, Complete 02/15/21 Blood Culture - Preliminary, Resulted No Growth after 72 hours. All specime... 02/15/21 Urine Culture - Final, Complete 02/15/21 Blood Culture - Preliminary, Resulted No Growth after 72 hours. All specime... GEN MUELLER DO February 18, 2021 18:50
[2021-02-18 20:00] VITALS: BP 167/92
[2021-02-18] MEDS: LORazepam 2 MG TAB PO PRN (20:00)
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
[2021-02-18] MEDS: SLF 3 ML SYR IV SCH (21:37)
[2021-02-19] VITALS (8 sets, daily range): BP systolic 131–190; BP diastolic 60–93
[2021-02-19] MEDS: LORazepam 2 MG TAB PO PRN ×2 (00:57→11:00)
[2021-02-19] MEDS: SLF 3 ML SYR IV SCH ×3 (05:06→22:16)
[2021-02-19] MEDS: HEPARIN SOD (PORCINE) 5000UNITS/ML 1ML VIAL/SYRINGE SC SCH ×3 (05:06→22:15)
[2021-02-19 05:43] LABS: HEMATOCRIT 40.8 % (36.0-47.0); HEMOGLOBIN 14.1 g/dl (12.0-15.5); MEAN CORPUSCULAR HEMOGLOBIN 33.7 pg (27.0-33.0); MEAN CORPUSCULAR HGB CONC 34.6 g/dl (32.0-36.5); MEAN CORPUSCULAR VOLUME 97.6 fl (80.0-96.0); PLATELET COUNT, AUTOMATED 269 10^3/uL (150-450); RED BLOOD COUNT 4.18 10^6/uL (4.00-5.40); WHITE BLOOD COUNT 7.6 10^3/uL (4.0-10.0)
[2021-02-19 06:06] LABS: ERYTHROCYTE SEDIMENTATION RATE 33 mm/hr (0-30)
[2021-02-19 06:13] LABS: BLOOD UREA NITROGEN 13 MG/DL (7-18); C REACTIVE PROTEIN QUANTITATIV 0.88 MG/DL (0.00-0.30); CARBON DIOXIDE LEVEL 31 MEQ/L (21-32); CHLORIDE LEVEL 108 MEQ/L (98-107); CPK CREATINE PHOSPHOKINASE 586 U/L (26-192); CREATININE FOR GFR 0.64 MG/DL (0.55-1.30); GLOMERULAR FILTRATION RATE > 60.0 (>45); GLUCOSE, FASTING 97 MG/DL (70-100); POTASSIUM SERUM 3.7 MEQ/L (3.5-5.1); SODIUM LEVEL 143 MEQ/L (136-145)
[2021-02-19] MEDS: THIAMINE 100 MG TAB PO SCH (08:38)
[2021-02-19] MEDS: FOLIC ACID 1 MG TAB PO SCH (08:38)
[2021-02-19] MEDS: ASPIRIN 81MG ENTERIC TABLET PO SCH (08:38)
[2021-02-19] MEDS: MULTIVITAMINS/MINERALS THERAP 1 TAB PO SCH (08:39)
[2021-02-19] MEDS: amLODIPine 5 MG TAB PO SCH (08:39)
[2021-02-19 10:07] LABS: HIV 1&2 SCREEN CENTAUR NEGATIVE (NEGATIVE)
[2021-02-19] MEDS: ACETAMINOPHEN TAB 650MG DOSE (2X325MG) PO PRN ×3 (11:00→22:15)
[2021-02-19] MEDS ORDERED: propofoL 200 MG/20 ML VIAL As Ordered ONE (11:18)
--- NOTE | 2021-02-19 11:50 | IPNPDOC ---
Date Seen The patient was seen on 02/19/21. Progress Note SUBJECTIVE: patient seen and examined at bedside. No acute events overnight. She seems oriented to person and place today but not date. She denies chest pain, SOB, palpitations, dizziness. Tongue pain persists, will be seen in ENT clinic this afternoon by Dr. Lu. OBJECTIVE PHYSICAL EXAMINATION: VITAL SIGNS: please see below General: NAD, comfortable HEENT: PERRLA, EOMI, sclerae clear Neck: supple, normal ROM, no JVD Respiratory: lungs CTAB, no wheeze, no rales, no crackles CVS: RRR, normal S1, S2, no murmurs Abdo: soft, no masses, no hepatosplenomegaly, BS+, no rebound tenderness Extremities: no edema, pulses 2+ MSK: no joint deformities, normal ROM Neuro: no focal neuro deficits, moving all 4 extremities, CN2-12 intact. Strength 5/5 in all 4 extremities. No nystagmus. Psych: calm, cooperative, AAO x 3 LABORATORY DATA, IMAGING STUDIES, MICROBIOLOGY: Please see below. DVT prophylaxis ordered?: Y, lovenox ASSESSMENT AND PLAN: 65 yop F with a hx of etoh use disorder, chronic tobacco smoker, presented with AMS. UDS negative for illicits, and negative serum etoh level. MRI brain showed two small embolic strokes, located in the R parietal and R occipital lobes. Patient was evaluated by Dr. Duran, who does not believe AMS and fall are a result of tiny strokes. Recommendations were appreciated, EEG pending. Patient will f/u as outpatient. Patient has tongue pain and large while ulcers with red base on tongue. With her history of smoking and alcohol, risk for cancer. Spoke with ENT. They recommended biopsy outpatient. Re-evaluated tongue on 02/17. The white part of the ulcer cleared up, but still ulcer present with red base. Ulcer possibly from viral infection. May also explain AMS. Ordered for HIV, HSV, and syphilis. Discussed with Dr. Lu, will be seen in clinic on 02/19/21. CT angio head and US carotid was negative for stenosis. HbA1c 5.3. LDL fasting 105. Pending echocardiogram. On aspirin. PROBLEMS: 1. Rhabdomyolysis -Improved, D/C fluids 2. CALLIE -2/2 rhabdomyolysis -Resolved 3. CVA -MRI demonstrates two small acute embolic stroke. Located in the right parietal lobe and right occipital lobe. -CT angio head and US carotid was negative for stenosis -Pending echocardiogram -HbA1c 5.3. LDL fasting 105. - start statin once CPK improves -Pending echocardiogram. -On aspirin. 4. Tongue ulcer -Viral vs Cancer -Risk factors include smoking and alcohol -D/w Dr. Lu, will be seen in ENT clinic on 02/19/21 -Magic mouthwash and lidocaine viscus for pain control -Syphillis serology negative. HIV negative. - HSV IgM pending 5. Odynophagia -Possible viral infection -Passed swallow evaluation -HSV pending, HIV, and syphilis neg 6. Hoarseness -Has not improved -Would recommend patient also see ENT outpatient for hoarseness. 7. Alcohol abuse -CIWA -Thiamine, folic acid, and multivitamin 8. Troponin elevation - noted on 02/15/21 0.32, repeat 0.27 - patient denies any chest pain, no acute EKG changes - trop elevated likely related to rhabdomyolysis. 9. DVT ppx -Subq heparin Disposition: Physical therapy worked with patient and patient continues to demonstrate unsteady gait, will place ARU consult. VS, I&O, 24H, Fishbone Vital Signs/I&O Vital Signs Date Time Temp Pulse Resp B/P (MAP) Pulse Ox O2 Delivery O2 Flow Rate FiO2 02/19/21 08:39 85 180/81 02/19/21 07:28 97.1 20 91 Room Air I&O- Last 24 Hours up to 6 AM 02/19/21 06:00 Intake Total 1260 ml Output Total 2050 ml Balance -790 ml Laboratory Data 24H LABS Laboratory Tests 2 02/19/21 05:29: Nucleated Red Blood Cells % (auto) 0.0, Erythrocyte Sedimentation Rate 33H, Anion Gap 4L, Glomerular Filtration Rate > 60.0, Calcium Level 9.0, Total Creatine Kinase 586H, C-Reactive Protein, Quantitative 0.88H, Syphilis Serology NONREACTIVE, HIV Antigen/Antibody Combo Qual NEGATIVE 02/19/21 11:07: CBC/BMP Laboratory Tests 02/19/21 05:29 Microbiology Microbiology 02/15/21 Respiratory Virus Panel (PCR) ([facility]) - Final, Complete 02/15/21 Blood Culture - Preliminary, Resulted No Growth after 72 hours. All specime... 02/15/21 Urine Culture - Final, Complete 02/15/21 Blood Culture - Preliminary, Resulted No Growth after 72 hours. All specime... SRIDHAR RAMON MD February 19, 2021 11:50
[2021-02-19] MEDS: MAGIC MOUTHWASH SUSPENSION BTL SSP PRN (15:42)
[2021-02-19] MEDS ORDERED: RAMELTEON 8 MG TAB (ROZEREM) PO PRN (22:50)
[2021-02-20] MEDS: HEPARIN SOD (PORCINE) 5000UNITS/ML 1ML VIAL/SYRINGE SC SCH ×2 (05:02→13:13)
[2021-02-20] MEDS: MAGIC MOUTHWASH SUSPENSION BTL SSP PRN (05:02)
[2021-02-20] MEDS: SLF 3 ML SYR IV SCH (05:03)
[2021-02-20] MEDS: ACETAMINOPHEN TAB 650MG DOSE (2X325MG) PO PRN ×3 (05:04→15:56)
[2021-02-20 06:00] VITALS: BP 161/89
[2021-02-20 06:38] LABS: HEMOGLOBIN 13.5 g/dl (12.0-15.5); MEAN CORPUSCULAR HEMOGLOBIN 32.8 pg (27.0-33.0); MEAN CORPUSCULAR HGB CONC 33.8 g/dl (32.0-36.5); MEAN CORPUSCULAR VOLUME 97.1 fl (80.0-96.0); PLATELET COUNT, AUTOMATED 274 10^3/uL (150-450); RED BLOOD COUNT 4.12 10^6/uL (4.00-5.40); WHITE BLOOD COUNT 6.8 10^3/uL (4.0-10.0)
[2021-02-20 07:03] LABS: BLOOD UREA NITROGEN 19 MG/DL (7-18); CALCIUM LEVEL 9.6 MG/DL (8.8-10.2); CARBON DIOXIDE LEVEL 28 MEQ/L (21-32); CHLORIDE LEVEL 105 MEQ/L (98-107); CPK CREATINE PHOSPHOKINASE 203 U/L (26-192); CREATININE FOR GFR 0.78 MG/DL (0.55-1.30); GLOMERULAR FILTRATION RATE > 60.0 (>45); GLUCOSE, FASTING 129 MG/DL (70-100); POTASSIUM SERUM 3.1 MEQ/L (3.5-5.1); SODIUM LEVEL 139 MEQ/L (136-145)
[2021-02-20] MEDS ORDERED: POTASSIUM CHLORIDE 10 MEQ SR TABLET PO ONE ×2 (08:00→12:00)
--- NOTE | 2021-02-20 10:41 | IPNPDOC ---
Text Note Date of Service The patient was seen on 02/20/21. NOTE Asked to see this 65 yo smoker with ETOH history for a tongue ulcer. She is not very helpful with history and she is quite hoarse with a very breathy voice No hx of Rheumatoid disease or other ulcerative chronic diseases PE not very in tune with the exam today Tongue has a 2 cm superficial ulcer of left anterior lateral border and a 1 cm ulcerative lesion of the right She has two 1 cm ulcer on the left lower lip Phayrnx clear Voice is very breathy, not hoarse Attempted a flexible laaryngocopy. Ripped the scope out of her nose IMP ulcerative oral lesions, multiple. This could be nutritional, autoimmune or viral Dysphonia uncertain as she did not allow exam This should be reapeated in a few weeks when she is more healthy For the oral lesions, initiall interveniton would be MAGIC MOUTH with steroid included ie Decadrom syrup to swish and spit Follow up here in 3 weeks. VS,Fishbone, I+O VS, Fishbone, I+O Laboratory Tests 02/20/21 05:36 Vital Signs Date Time Temp Pulse Resp B/P (MAP) Pulse Ox O2 Delivery O2 Flow Rate FiO2 02/20/21 06:00 98.8 78 17 161/89 (113) 94 Room Air I&O- Last 24 Hours up to 6 AM 02/20/21 06:00 Intake Total 1040 ml Output Total 500 ml Balance 540 ml CRICKET BRAN MD February 20, 2021 10:41
[2021-02-20] MEDS: MULTIVITAMINS/MINERALS THERAP 1 TAB PO SCH (10:44)
[2021-02-20] MEDS: ASPIRIN 81MG ENTERIC TABLET PO SCH (10:44)
[2021-02-20] MEDS: FOLIC ACID 1 MG TAB PO SCH (10:44)
[2021-02-20] MEDS: THIAMINE 100 MG TAB PO SCH (10:44)
[2021-02-20 10:46] VITALS: BP 154/88
[2021-02-20] MEDS: amLODIPine 5 MG TAB PO SCH (10:46)
[2021-02-20 10:56] VITALS: BP 154/88
[2021-02-20] MEDS: LIDOCAINE VISCOUS 2% SOLN 15ML UDC SSP PRN (13:13)
--- NOTE | 2021-02-20 13:44 | DS.PDOC ---
Discharge Summary General Date of Admission February 15, 2021 at 21:11 Date of Discharge 02/20/21 Discharge Summary PROCEDURES PERFORMED DURING STAY: EEG (02/20/21): TECHNICAL DESCRIPTION: This 21 EEG was recorded by 21-scalp, ear, and two EKG electrodes and was reviewed in bipolar and referential montages following reformatting in 10-20 international electrode placement system. INTERPRETATION: Patient was noted to be in awake and drowsy states during this EEG. Resting and awake background rhythm consisted of 8.5 Hz alpha activity measuring 15-40 microvolts in amplitude, which was symmetric and reactive to eye opening. Attenuation of posterior dominant rhythm was seen during transition into drowsiness. No sleep was achieved. Hyperventilation was not performed. Photic stimulation remained unremarkable. EKG revealed normal sinus rhythm. Frontal intermittent rhythmic delta activity was noted on several occasions lasting for 4-7 seconds. No clear epileptiform abnormalities were seen. No focal, lateralizing, or epileptiform abnormalities were seen. No relevant clinical activity was noted. CONCLUSION: This EEG in awake and drowsy states is abnormal due to presence of frontal intermittent rhythmic delta activity consistent with nonspecific and diffuse cerebral dysfunction, suggesting an encephalopathy due to multiple potential causes including toxic, metabolic, infectious, medication-related, or multifocal structure brain abnormalities. No epileptiform abnormalities were seen. Clinical correlation is recommended. COMPLICATIONS/CHIEF COMPLAINT: Callie, Ams, Dehydration. HISTORY OF PRESENT ILLNESS: Carola Spann is a 65 year old female who presented to the ED after her daughter found her this morning with multiple new bruises and altered mental status. Daughter states the patient was known to be in her normal state of health on Thursday night when she was with her sister. Per daughter, patient was drinking that night which is not abnormal for her. Patient does not recall any details of the past few days. She states she remembers falling asleep on the couch last night and waking up with extensive bruising and pain in her mouth. She states she has not been drinking any alcohol or using any other substances. Patient states she has not been in contact with any other people since Thursday. Daughter feels this is not true and states she is going to check the patient's phone at home to better understand what has been going on the past few days. Patient states she is currently having aching over her body and pain in her mouth. HOSPITAL COURSE: Rhabdomyolysis -Improved, D/C fluids CALLIE -2/2 rhabdomyolysis -Resolved Altered mental status - Discussed with Dr. Duran, in setting of small ischemic strokes (see below) - AMS likely multifactorial, due possibly to post concussive syndrome vs alcohol withdrawal seizures vs Wernicke's encephalpathy - improving. EEG showing frontal intermittent rhythmic delta activity consistent with nonspecific and diffuse cerebral dysfunction, suggesting an encephalopathy due to multiple potential causes including toxic, metabolic, infectious, medication-related, or multifocal structure brain abnormalities. - c/w thiamine CVA -MRI demonstrates two small acute ischemic strokes. Located in the right parietal lobe and right occipital lobe. Mild small vessel ischemic disease was also seen, a chronic findings -Neurology Dr. Duran was consulted. Does not believe her altered mental status to be caused by tiny strokes -CT angio head and US carotid was negative for stenosis -Pending echocardiogram -HbA1c 5.3. LDL fasting 105. -ASA and statin (started on resolution of rhabdomyolysis) -echocardiogram reviewed as below Tongue ulcer -Viral vs possibly cancerous -Risk factors include smoking and alcohol -D/w Dr. Lu, seen patient in ENT clinic during admission. Does not believe oral lesions to be cancerous, but will perform bx at next follow if no improvement. Likely viral vs traumatic, perhaps a burn -Magic mouthwash and lidocaine viscus, add steroid mouth swicsh for pain control -Syphillis serology negative. HIV negative. HSV IgM negative. Odynophagia -Possible viral infection -Passed swallow evaluation -HSV pending, HIV, and syphilis neg Hoarseness -Has not improved - Dr. Lu attempted laryngoscopy in clinic but patient was irritable and declined -Recommended patient to return to clinic in 2 weeks for repeat Exam 7. Alcohol abuse -CIWA -Thiamine, folic acid, and multivitamin 8. Troponin elevation - noted on 02/15/21 0.32, repeat 0.27 - patient denies any chest pain, no acute EKG changes - trop elevated likely related to rhabdomyolysis. - I discussed findings with Dr. Sim, agrees trop elevation related to rhabdo, and given lack of ischemic EKG findings and chest pain, very low risk of ACS DISCHARGE MEDICATIONS: Please see below. ALLERGIES: Please see below. PHYSICAL EXAMINATION ON DISCHARGE: VITAL SIGNS: please see below General: NAD, comfortable HEENT: PERRLA, EOMI, sclerae clear Neck: supple, normal ROM, no JVD Respiratory: lungs CTAB, no wheeze, no rales, no crackles CVS: RRR, normal S1, S2, no murmurs Abdo: soft, no masses, no hepatosplenomegaly, BS+, no rebound tenderness Extremities: no edema, pulses 2+ MSK: no joint deformities, normal ROM Neuro: no focal neuro deficits, moving all 4 extremities, CN2-12 intact. Strength 5/5 in all 4 extremities. No nystagmus. Psych: calm, cooperative, AAO x 2-3. Not tremulous. Does not appear anxious. LABORATORY DATA: Please see below. IMAGIND echocardiogram (02/20/21): 2D COMMENTS: 1. Normal left ventricular size, wall thickness, and normal global left ventricular systolic function with a hyperdynamic left ventricle. The estimated left ventricular systolic ejection fraction is 65 to 70%. 2. Normal left atrium. Normal right atrium and right ventricle. 3. The atrial septum appeared to be normal without evidence of defect or shunt. 4. Normal aortic root. 5. Trace pericardial effusion noted. No evidence of cardiac tamponade. 6. Mildly calcified aortic valve with normal leaflet excursion. Normal mitral valve and tricuspid valve. The pulmonic valve and proximal pulmonary artery branches were not well visualized. 7. The inferior vena cava was normal in size, central venous pressure was most likely normal. DOPPLER: Only trace mitral regurgitation detected. BUBBLE STUDY: Bubble study was done with agitated normal saline, and there was no ____ bubbles from the right heart chambers to the left heart chambers. IMPRESSION: 1. Normal global left ventricular systolic function with a hyperdynamic left ventricle. There were some findings consistent with grade 1 left ventricular diastolic dysfunction, abnormal relaxation. 2. Aortic valve sclerosis without stenosis or aortic regurgitation. 3. Trace pericardial effusion. 4. Negative bubble study for intracardiac shunt. - CT cervical spine 1. No acute abnormality. 2. Chronic findings as discussed above - CT head 1. Mildly limited exam due to motion artifact 2. Small area of subcortical edema in the right frontal lobe of uncertain etiology. A follow-up MRI is suggested. - CT lumbar spine No acute fracture in the lumbar spine. - Maxillofacial CT No acute fracture. - CT Thoracic spine 1. Degenerative changes as above. 2. No acute thoracic spinal bony abnormality identified. 3. Please see the lumbar spine CT report of the same date for the lumbar spine findings. - CT Abdomen/pelvis 1. Lack of IV contrast reduces sensitivity to abdominal solid visceral organ traumatic injury. IV contrast enhanced imaging may add additional useful information if not contraindicated. 2. Possible gastritis. Clinical correlation with the patient's specific symptomatology is recommended. 3. Right renal calyceal lithiasis. 4. Prior hysterectomy. 5. No acute injury identified. 6. Please see the CT chest report of the same date for additional findings. - CT Chest 1. No acute injury identified. 2. Pulmonary emphysema. 3. Coronary atherosclerosis. 4. Minimal pericardial effusion. 5. Please see the abdomen/pelvis CT report of the same date for additional findings. - Elbow XR There is no acute fracture, dislocation, subluxation, or joint effusion. - Humerus XR Chronic changes - Wrist XR No acute fracture or destructive osseous lesion. - Knee XR Chronic changes bilateral PROGNOSIS: good ACTIVITY: [As tolerated]. DIET:2g sodium restriced DISCHARGE PLAN: DC to ARU for acute rehab. F/u with PCP in 3-5 days after DC. F/u with ENT in 2-3 weeks, Dr. Lu. Follow up with neurology in 2 weeks after DC. DISPOSITION: DC to ARU. DISCHARGE INSTRUCTIONS: 1. please f/u with PCP 3-5 days 2. F/u neurology 2 weeks 3. F/u with ENT Dr. Lu in 2-3 weeks. 4. If you developed fevers, chills, chest pain, nausea, vomiting, diarrhea, palpitations or otherwise worsening of her symptoms, please call 911 or return to the nearest emergency room. DISCHARGE CONDITION: [Stable]. TIME SPENT ON DISCHARGE: 35 minutes Vital Signs/I&Os Vital Signs Date Time Temp Pulse Resp B/P (MAP) Pulse Ox O2 Delivery O2 Flow Rate FiO2 02/20/21 10:46 85 154/88 02/20/21 06:00 98.8 17 94 Room Air I&O- Last 24 Hours up to 6 AM 02/20/21 06:00 Intake Total 1040 ml Output Total 500 ml Balance 540 ml Laboratory Data Labs 24H Laboratory Tests 2 02/20/21 05:36: Nucleated Red Blood Cells % (auto) 0.0, Anion Gap 6L, Glomerular Filtration Rate > 60.0, Calcium Level 9.6, Total Creatine Kinase 203H CBC/BMP Laboratory Tests 02/20/21 05:36 Microbiology Microbiology 02/15/21 Respiratory Virus Panel (PCR) ([facility]) - Final, Complete 02/15/21 Blood Culture - Preliminary, Resulted No Growth after 72 hours. All specime... 02/15/21 Urine Culture - Final, Complete 02/15/21 Blood Culture - Preliminary, Resulted No Growth after 72 hours. All specime... Discharge Medications Scheduled Amlodipine Besylate (Amlodipine Besylate) 5 Mg Tablet, 5 MG PO BID Aspirin (Aspirin EC) 81 Mg Tablet.dr, 81 MG PO DAILY Aspirin (Aspirin EC) 81 Mg Tablet.dr, 81 MG PO DAILY Cefdinir (Cefdinir) 300 Mg Capsule, 300 MG PO BID Fluticasone Propionate (Fluticasone Propionate) 16 Gm [place].susp, 1 SPRAY NARES BID Folic Acid (Folic Acid) 1 Mg Tablet, 1 MG PO DAILY Folic Acid (Folic Acid) 1 Mg Tablet, 1 MG PO DAILY Gabapentin (Gabapentin) 300 Mg Capsule, 900 MG PO TID Hydralazine HCl (Hydralazine HCl) 25 Mg Tablet, 25 MG PO Q6H L.acidoph/L.bulg/B.bif/S.therm (Devi-Bid Caplet) 1 Each Tablet, 1 EA PO TID Loratadine (Claritin) 10 Mg Tablet, 10 MG PO DAILY Magic Mouthwash (First-Mouthwash Blm) 1 Ea Susp, 0 EA SSP AC Magnesium Oxide (Magnesium Oxide) 400 Mg Tablet, 400 MG PO BID Metoprolol Tartrate (Metoprolol Tartrate) 25 Mg Tablet, 25 MG PO BID Multivitamins (Thera M Plus Tablet) 1 Each Tablet, 1 TAB PO DAILY Pantoprazole Sodium (Pantoprazole Sodium) 40 Mg Tablet.dr, 40 MG PO BID Prednisolone (Prednisolone) 15 Mg/5 Ml Solution, 5 ML PO BID swish and spit Prednisolone (Prednisolone Sodium Phosphate) 15 Mg/5 Ml Solution, 15 MG PO BID Thiamine Hcl (Vitamin B-1) 100 Mg Tablet, 100 MG PO DAILY Thiamine Hcl (Vitamin B-1) 100 Mg Tablet, 100 MG PO DAILY Scheduled PRN Acetaminophen (Acetaminophen) 325 Mg Tablet, 650 MG PO Q4H PRN for PAIN OR FEVER Magic Mouthwash (First-Mouthwash Blm) 1 Ea Susp, 0 EA SSP TIDP PRN for DISCOMFORT Allergies Coded Allergies: No Known Allergies (Verified Allergy, Unknown, 02/15/21) SRIDHAR RAMON MD February 20, 2021 13:44
[2021-02-20 14:00] VITALS: BP 154/85
[2021-02-20] MEDS ORDERED: ACET1TAB55 PO (14:23)
[2021-02-20] MEDS ORDERED: MAGICMW SSP (14:23)
[2021-02-20] MEDS ORDERED: AMLO1TAB24 PO (14:23)
[2021-02-20] MEDS ORDERED: RAME8TAB2 PO (14:23)
[2021-02-20] MEDS ORDERED: VITMTA PO (14:23)
[2021-02-20] MEDS ORDERED: ASPI-551 PO (14:23)
[2021-02-20] MEDS ORDERED: THIA100TA PO (14:23)
[2021-02-20] MEDS ORDERED: FOLI1TAB11 PO (14:23)
[2021-02-20 15:39] LABS: BLOOD UREA NITROGEN 23 MG/DL (7-18); CALCIUM LEVEL 9.5 MG/DL (8.8-10.2); CARBON DIOXIDE LEVEL 29 MEQ/L (21-32); CHLORIDE LEVEL 110 MEQ/L (98-107); GLOMERULAR FILTRATION RATE > 60.0 (>45); GLUCOSE, FASTING 130 MG/DL (70-100); POTASSIUM SERUM 4.1 MEQ/L (3.5-5.1); SODIUM LEVEL 143 MEQ/L (136-145)
--- NOTE | 2021-02-20 16:43 | ECGEPIP ---
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
[2021-02-20] MEDS ORDERED: PRED5SOL10 PO (16:45)
[2021-02-21 19:07] LABS: HSV IgM TYPES 1&2 <0.91 Ratio (0.00-0.90)
--- NOTE | 2021-03-07 15:22 | ECHO ---
ECHOCARDIOGRAM DATE OF PROCEDURE: 02/20/2021 Age: 65 Gender: Height: Weight: REFERRING PROVIDER: Dr. Lorenzo Keith. PATIENT LOCATION: Room 4213. REASON FOR STUDY: CVA. 2D MEASUREMENTS: IVS 1.2 cm LV 4.4 cm LVPW 1.2 cm LA 3.0 cm Aorta 3.3 cm IVC 1.3 cm DOPPLER MEASUREMENTS: Mitral E 0.6 Mitral A 0.8 with a ratio of 0.7 2D COMMENTS: 1. Normal left ventricular size, wall thickness, and normal global left ventricular systolic function with a hyperdynamic left ventricle. The estimated left ventricular systolic ejection fraction is 65 to 70%. 2. Normal left atrium. Normal right atrium and right ventricle. 3. The atrial septum appeared to be normal without evidence of defect or shunt. 4. Normal aortic root. 5. Trace pericardial effusion noted. No evidence of cardiac tamponade. 6. Mildly calcified aortic valve with normal leaflet excursion. Normal mitral valve and tricuspid valve. The pulmonic valve and proximal pulmonary artery branches were not well visualized. 7. The inferior vena cava was normal in size, central venous pressure was most likely normal. DOPPLER: Only trace mitral regurgitation detected. BUBBLE STUDY: Bubble study was done with agitated normal saline, and there was no ____ bubbles from the right heart chambers to the left heart chambers. IMPRESSION: 1. Normal global left ventricular systolic function with a hyperdynamic left ventricle. There were some findings consistent with grade 1 left ventricular diastolic dysfunction, abnormal relaxation. 2. Aortic valve sclerosis without stenosis or aortic regurgitation. 3. Trace pericardial effusion. 4. Negative bubble study for intracardiac shunt.
== END 2021-02-20 17:16 | DRG 682 ==
LOC: M ED 13:27 → M ED INP 21:11 → ENRESERV 21:42 → M PCU 23:50 → M MSPAV 02-19 15:32
PROVIDERS: ADMIT Family Medicine; ATTEND Family Medicine
DX: N17.9 Acute kidney failure, unspecified (principal); I63.9 Cerebral infarction, unspecified; M62.82 Rhabdomyolysis; E51.2 Wernicke's encephalopathy; F10.239 Alcohol dependence with withdrawal, unspecified; F17.200 Nicotine dependence, unspecified, uncomplicated; F07.81 Postconcussional syndrome; K14.0 Glossitis; R56.9 Unspecified convulsions; Z79.82 Long term (current) use of aspirin; Z79.899 Other long term (current) drug therapy; R29.6 Repeated falls

== ENCOUNTER 2021-02-20 12:37 | Inpatient (IN) | payer MEDICARE, OTHER ==
[~2021-02-20] VITALS: Ht 167.6 cm; Wt 64.6 kg
[~2021-02-20 12:37] MED LIST: ATOR1TAB21 PO; BUPR300T92 PO; FLUO40CA PO; GABA600T4 PO; METF500T13 PO; METH20TA31 PO; PANT40TA29 PO; PROP10TA56 PO
[2021-02-20] MEDS ORDERED: RAME8TAB2 PO (14:23)
[2021-02-20] MEDS ORDERED: ASPI-551 PO (14:23)
[2021-02-20] MEDS ORDERED: THIA100TA PO (14:23)
[2021-02-20] MEDS ORDERED: VITMTA PO (14:23)
[2021-02-20] MEDS ORDERED: FOLI1TAB11 PO (14:23)
[2021-02-20] MEDS ORDERED: MAGICMW SSP (14:23)
[2021-02-20] MEDS ORDERED: ACET1TAB55 PO (14:23)
[2021-02-20] MEDS ORDERED: AMLO1TAB24 PO (14:23)
[2021-02-20] MEDS ORDERED: PRED5SOL10 PO (16:45)
[2021-02-20 17:20] VITALS: BP 143/65
[2021-02-20] MEDS ORDERED: BISACODYL 10 MG SUPP PR PRN (18:35)
[2021-02-20 20:00] VITALS: BP 172/94
[2021-02-20] MEDS: GABAPENTIN 300 MG CAP PO SCH (20:33)
[2021-02-20] MEDS: RAMELTEON 8 MG TAB (ROZEREM) PO SCH (20:33)
[2021-02-20] MEDS: SENNA 8.6 MG TAB (SENOKOT) PO SCH (20:33)
[2021-02-20] MEDS: DOCUSATE SODIUM 100MG CAPSULE PO SCH (20:33)
[2021-02-20] MEDS: prednisoLONE (PRELONE) 15MG/5ML SYRUP UDC PO SCH (20:33)
[2021-02-20] MEDS: HEPARIN SOD (PORCINE) 5000UNITS/ML 1ML VIAL/SYRINGE SC SCH (20:34)
[2021-02-20] MEDS: ACETAMINOPHEN TAB 650MG DOSE (2X325MG) PO PRN (20:34)
[2021-02-20 22:30] VITALS: BP 168/80
[2021-02-21] VITALS: BP 163/74
[2021-02-21] MEDS: **hydrALAZINE HCL** 25 MG TAB PO SCH ×5 (00:06→23:44)
[2021-02-21] MEDS: ACETAMINOPHEN TAB 650MG DOSE (2X325MG) PO PRN ×5 (05:01→21:43)
[2021-02-21 05:09] VITALS: BP 167/79
[2021-02-21 06:58] LABS: BASO % 0.3 % (0.0-1.0); EOS # 0.1 10^3/uL (0.0-0.5); EOS % 1.6 % (0.0-3.0); HEMATOCRIT 40.6 % (36.0-47.0); HEMOGLOBIN 13.7 g/dl (12.0-15.5); LYMPH # 1.9 10^3/uL (1.5-5.0); MEAN CORPUSCULAR HEMOGLOBIN 33.7 pg (27.0-33.0); MEAN CORPUSCULAR HGB CONC 33.7 g/dl (32.0-36.5); MEAN CORPUSCULAR VOLUME 99.8 fl (80.0-96.0); MONO # 0.8 10^3/uL (0.0-0.8); MONO % 12.2 % (2.0-8.0); NEUTROPHILS % 57.3 % (36.0-66.0); PLATELET COUNT, AUTOMATED 320 10^3/uL (150-450); RED BLOOD COUNT 4.07 10^6/uL (4.00-5.40); WHITE BLOOD COUNT 6.9 10^3/uL (4.0-10.0)
[2021-02-21 07:25] LABS: ALBUMIN 3.1 GM/DL (3.2-5.2); ALT/SGPT 68 U/L (12-78); BILIRUBIN,TOTAL 0.2 MG/DL (0.2-1.0); BLOOD UREA NITROGEN 23 MG/DL (7-18); CALCIUM LEVEL 9.5 MG/DL (8.8-10.2); CARBON DIOXIDE LEVEL 29 MEQ/L (21-32); CHLORIDE LEVEL 109 MEQ/L (98-107); CREATININE FOR GFR 0.71 MG/DL (0.55-1.30); GLOMERULAR FILTRATION RATE > 60.0 (>45); GLUCOSE, FASTING 94 MG/DL (70-100); POTASSIUM SERUM 4.2 MEQ/L (3.5-5.1); SODIUM LEVEL 142 MEQ/L (136-145)
[2021-02-21] MEDS: HEPARIN SOD (PORCINE) 5000UNITS/ML 1ML VIAL/SYRINGE SC SCH ×2 (07:39→21:20)
[2021-02-21] MEDS: LIDOCAINE VISCOUS 2% SOLN 15ML UDC SS PRN ×2 (07:39→21:20)
[2021-02-21] MEDS: MAGIC MOUTHWASH SUSPENSION BTL SSP SCH ×3 (07:40→17:41)
[2021-02-21] MEDS: ASPIRIN 81MG ENTERIC TABLET PO SCH (07:41)
[2021-02-21] MEDS: GABAPENTIN 300 MG CAP PO SCH ×3 (07:41→21:19)
[2021-02-21] MEDS: prednisoLONE (PRELONE) 15MG/5ML SYRUP UDC PO SCH ×2 (07:41→21:18)
[2021-02-21] MEDS: DOCUSATE SODIUM 100MG CAPSULE PO SCH ×2 (07:41→21:19)
[2021-02-21] MEDS: MULTIVITAMINS/MINERALS THERAP 1 TAB PO SCH (07:42)
[2021-02-21] MEDS: FOLIC ACID 1 MG TAB PO SCH (07:42)
[2021-02-21] MEDS: THIAMINE 100 MG TAB PO SCH (07:42)
[2021-02-21] MEDS: amLODIPine 5 MG TAB PO SCH (07:42)
[2021-02-21] MEDS ORDERED: POTASSIUM CHLORIDE 10 MEQ SR TABLET PO SCH (09:00)
[2021-02-21] MEDS ORDERED: PANTOPRAZOLE 40MG TAB (PROTONIX) PO SCH (09:00)
--- NOTE | 2021-02-21 11:15 | HPEPDOC ---
[facility] Note DATE OF ADMISSION: 02-20-21 DATE OF SERVICE: 02-21-21 TIME OF ADMISSION: Please refer to physician's admission order. SOURCE OF ADMISSION INFORMATION: [facility] record and patient CHIEF COMPLAINT:stroke HISTORY OF PRESENT ILLNESS: 65 F pmh etoh abuse, smoking, back pain who presented to [facility] ED on 02-15-21 with altered mental status, bruising, and oral pain. CTH showed, Small area of subcortical edema in the right frontal lobe of uncertain etiology with follow- up MRI showing Two small areas of restricted diffusion in the high right parietal lobe measuring up to 4 mm representing embolic acute infarcts. Additionally there is a small area of restricted diffusion in the right occipital lobe may represent another small area acute infarct. She was placed on CIWA protocol and evaluated by neurology who recommended ASA and statin in addition to EEG. She complained on odynophagia and noted to have oral ulcers for ENT evaluated patient and recommended magic mouth wash and steroid mouth wash with follow-up outpatient. She was noted to have mobility and ADL impairments and deemed medically appropriate for discharge to ARU on 02-20-21. REVIEW OF SYSTEMS: The following is a completed review of systems and has been reviewed. Review of systems otherwise unremarkable. PAIN: Patient self reports [no pain]. EYES: [No recent vision changes]. EARS, NOSE, & THROAT:+ throat pain, +odynophagia CARDIOVASCULAR: Denies chest pain or palpitations PULMONARY: Denies shortness of breath GASTROINTESTINAL: Denies constipation/diarrhea GENITOURINARY: denies dysuria MUSCULOSKELETAL: generalized weakness NEUROLOGICAL: +tremor HEMATOLOGICAL: denies easy bruising. SKIN: +oral ulcers PSYCHIATRIC: Unremarkable All other review of systems found to be negative. PAST MEDICAL HISTORY: as per HPI PAST SURGICAL HISTORY: KATTY with BSO ALLERGIES: Please see below. MEDICATIONS: Please see below. SOCIAL HISTORY: Etoh abuse, opioid abuse with OD, +smoker DIET: 2 gram low sodium PHYSICAL EXAMINATION: VITAL SIGNS: Please see below. GENERAL: Pleasant and cooperative. No acute distress. HEENT: PERRL. Extraocular movements intact. Clear conjunctiva. +tongue ulcers CARDIOVASCULAR:Regular rate and rhythm. No murmurs, rubs, or gallops LUNGS: Clear to auscultation bilaterally. No wheezes. No rhonchi ABDOMEN: Soft, nontender, nondistended. Positive bowel sounds. Normal active bowel sounds NEUROLOGICAL: Alert and oriented times three. Cranial nerves II through XII grossly intact. Sensation grossly intact (-) dysmetria EXTREMITIES: 5\5 strength bilateral upper extremities. 5\5 strength right lower extremity. 5/5 strength in left lower extremity. LABORATORY DATA: Please see below. 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 Neuro- s/p right parietal and occipital strokes, c/u ASA and statin for secondary stroke recovery -s/p CIWA protocol for etoh abuse, c/i thiamine, folic acid for cog enhancement -eeg results pending 3. Cardiac- hx of HTN c/u BP meds, adjust prn - HLD c/u statin 4. Resp- hx of smoking, will order combivent , monitor for infection 5. ENT- oral lesions with odynophagia possibly viral/nutrient deficiency/cancer, c/u mouth wash, f/u ENT outpatient 6. DVT ppx- heparin 7. GI- recent CT/abd pelvis suggestive of gastritis, protonix BID 8. DVT ppx heparin and TEDs 9. Pain- tylenol prn, gabapentin 600mg TID 10. Dispo- TBD POST ADMISSION PHYSICIAN EVALUATION: Medical and functional status: Description of medical status, medical assessmen t: As above. Rehabilitation diagnosis and current and prior cold morbid medical conditions as above. Risk of complications and plans to mitigate them as above. Description of functional status current status is as above. Prior status as above. Status compared to preadmission: There are no clinically significant differences between the patient's current status and the information described on the preadmission screening document. Treatment plan anticipated: Treatment plan is as described above. Required disciplines including physical therapy, occupational therapy, others as noted above Intensity of services: 3 hours a day, 6 days a week. Special considerations: There are no specific special or safety considerations that would likely preclude immediate implementation of an intensive rehabili tation program or subsequently influence the plan of care. ATTESTATION: Considering all the information above, it is my best judgment that this patient requires intensive rehabilitation therapy as described above and an inpatient hospital environment due to the complexity of nursing, medical, and r ehabilitation needs required by the patient. Furthermore, this patient can reasonably be expected to participate in an benefit from an inpatient rehabilitation stay with an interdisciplinary team approach to the delivery of rehabilitation care under the direction and supervision of rehabilitation ph ysician. PROGNOSIS: good ESTIMATED LENGTH OF STAY:10-12 days. PROJECTED DISCHARGE DESTINATION: Home with family support and any durable medical equipment required to increase functional safety and mobility. TIME SPENT COUNSELING AND COORDINATING INITIAL CARE: Greater than 70 minutes. Vital Signs Vital Sign - Last 24 Hours 02/20/21 02/20/21 02/20/21 02/21/21 17:20 20:00 22:30 00:00 Temp 97.4 97.7 Pulse 75 77 72 Resp 18 18 B/P (MAP) 143/65 (91) 172/94 (120) 168/80 (109) 163/74 (103) Pulse Ox 96 93 O2 Delivery Room Air Room Air 02/21/21 02/21/21 02/21/21 02/21/21 00:06 05:01 05:09 07:42 Temp 97.8 Pulse 78 78 Resp 20 B/P (MAP) 163/74 167/79 167/79 (108) 167/79 Pulse Ox 96 O2 Delivery Room Air Laboratory Data CBC/BMP Laboratory Tests 02/21/21 06:17 Labs 24H Laboratory Tests 2 02/21/21 06:17: Immature Granulocyte % (Auto) 1.6, Neutrophils (%) (Auto) 57.3, Lymphocytes (%) (Auto) 27.0, Monocytes (%) (Auto) 12.2H, Eosinophils (%) (Auto) 1.6, Basophils (%) (Auto) 0.3, Neutrophils # (Auto) 4.0, Lymphocytes # (Auto) 1.9, Monocytes # (Auto) 0.8, Eosinophils # (Auto) 0.1, Basophils # (Auto) 0.0, Nucleated Red Blood Cells % (auto) 0.0, Anion Gap 4L, Glomerular Filtration Rate > 60.0, Calcium Level 9.5, Total Bilirubin 0.2, Aspartate Amino Transf (AST/SGOT) 37, Alanine Aminotransferase (ALT/SGPT) 68, Alkaline Phosphatase 77, Total Protein 6.0L, Albumin 3.1L, Albumin/Globulin Ratio 1.1L Home Medications Scheduled Amlodipine Besylate (Amlodipine Besylate) 5 Mg Tablet, 5 MG PO DAILY Aspirin (Aspirin EC) 81 Mg Tablet.dr, 81 MG PO DAILY Folic Acid (Folic Acid) 1 Mg Tablet, 1 MG PO DAILY Gabapentin (Gabapentin) 600 Mg Tablet, 600 MG PO TID, (Reported) Multivitamins (Thera M Plus Tablet) 1 Each Tablet, 1 TAB PO DAILY Prednisolone (Prednisolone) 15 Mg/5 Ml Solution, 5 ML PO BID swish and spit Thiamine Hcl (Vitamin B-1) 100 Mg Tablet, 100 MG PO DAILY Scheduled PRN Acetaminophen (Acetaminophen) 325 Mg Tablet, 650 MG PO Q4H PRN for PAIN OR FEVER Magic Mouthwash (First-Mouthwash Blm) 1 Ea Susp, 0 EA SSP TIDP PRN for DISCOMFORT Ramelteon (Ramelteon) 8 Mg Tablet, 8 MG PO QHS PRN for INSOMNIA Allergies Coded Allergies: No Known Allergies (Verified Allergy, Unknown, 02/15/21) A-FIB/CHADSVASC A-FIB History Current/History of A-Fib/PAF?: No Current PO Anticoag Therapy: No SHAHEEN TOVAR MD February 21, 2021 11:15
[2021-02-21 12:01] VITALS: BP 137/76
[2021-02-21] MEDS: METOPROLOL TART 12.5 MG PER 1/2 TAB PO SCH ×2 (12:02→21:20)
[2021-02-21] MEDS: MAGNESIUM OXIDE 400MG TAB (MAG-OX) PO SCH ×2 (12:03→21:19)
[2021-02-21 14:00] VITALS: BP 130/61
[2021-02-21] MEDS: COMBIVENT RESPIMAT 100-20MCG INHALER 4GM INH SCH ×2 (14:00→19:29)
--- NOTE | 2021-02-21 15:56 | IPNPDOC ---
Date Seen The patient was seen on 02/21/21. Progress Note SUBJECTIVE: patient seen and examined at bedside. No acute events overnight. She seems oriented to person and place today but not date. She denies chest pain, SOB, palpitations, dizziness. Tongue pain persists, will be seen in ENT clinic this afternoon by Dr. Lu. OBJECTIVE PHYSICAL EXAMINATION: VITAL SIGNS: please see below General: NAD, comfortable HEENT: PERRLA, EOMI, sclerae clear Neck: supple, normal ROM, no JVD Respiratory: lungs CTAB, no wheeze, no rales, no crackles CVS: RRR, normal S1, S2, no murmurs Abdo: soft, no masses, no hepatosplenomegaly, BS+, no rebound tenderness Extremities: no edema, pulses 2+ MSK: no joint deformities, normal ROM Neuro: no focal neuro deficits, moving all 4 extremities, CN2-12 intact. Strength 5/5 in all 4 extremities. No nystagmus. Psych: calm, cooperative, AAO x 3 LABORATORY DATA, IMAGING STUDIES, MICROBIOLOGY: Please see below. DVT prophylaxis ordered?: Y, lovenox ASSESSMENT AND PLAN: 65 yop F with a hx of etoh use disorder, chronic tobacco smoker, presented with AMS. UDS negative for illicits, and negative serum etoh level. MRI brain showed two small embolic strokes, located in the R parietal and R occipital lobes. Patient was evaluated by Dr. Duran, who does not believe AMS and fall are a result of tiny strokes. Recommendations were appreciated, EEG pending. Patient will f/u as outpatient. Patient has tongue pain and large while ulcers with red base on tongue. With her history of smoking and alcohol, risk for cancer. Spoke with ENT. They recommended biopsy outpatient. Re-evaluated tongue on 02/17. The white part of the ulcer cleared up, but still ulcer present with red base. Ulcer possibly from viral infection. May also explain AMS. Ordered for HIV, HSV, and syphilis. Discussed with Dr. Lu, will be seen in clinic on 02/19/21. CT angio head and US carotid was negative for stenosis. HbA1c 5.3. LDL fasting 105. Pending echocardiogram. On aspirin. PROBLEMS: 1. Rhabdomyolysis -Improved, D/C fluids 2. CALLIE -2/2 rhabdomyolysis -Resolved 3. CVA -MRI demonstrates two small acute embolic stroke. Located in the right parietal lobe and right occipital lobe. -CT angio head and US carotid was negative for stenosis -HbA1c 5.3. LDL fasting 105. -start statin once CPK improves - EEG pending - per Dr. Duran, small infarcts likely not contributing to AMS. B12, folate wnl. f/u copper level - needs to f/u with neurology within 2 weeks. -Pending echocardiogram, final report pending -On aspirin, resume statin 4. Tongue ulcer -Viral vs Cancer -Risk factors include smoking and alcohol -D/w Dr. Lu wasrenee in ENT clinic on 02/20/21 -Magic mouthwash and lidocaine viscus with steroid mouth swish and spit -Syphillis serology negative. HIV negative. - HSV IgM pending 5. Odynophagia -Possible viral infection -Passed swallow evaluation -HSV pending, HIV, and syphilis neg 6. Hoarseness -Has not improved -Would recommend patient also see ENT outpatient for hoarseness. 7. Alcohol abuse -CIWA -Thiamine, folic acid, and multivitamin 8. Troponin elevation - noted on 02/15/21 0.32, repeat 0.27 - patient denies any chest pain - trop elevated likely related to rhabdomyolysis, discussed with Dr. Sim, agrees. 9. DVT ppx -Subq heparin VS, I&O, 24H, Fishbone Vital Signs/I&O Vital Signs Date Time Temp Pulse Resp B/P (MAP) Pulse Ox O2 Delivery O2 Flow Rate FiO2 02/21/21 14:00 97.9 66 18 130/61 (84) 98 Room Air I&O- Last 24 Hours up to 6 AM 02/21/21 06:00 Intake Total 120 ml Balance 120 ml Laboratory Data 24H LABS Laboratory Tests 2 02/21/21 06:17: Immature Granulocyte % (Auto) 1.6, Neutrophils (%) (Auto) 57.3, Lymphocytes (%) (Auto) 27.0, Monocytes (%) (Auto) 12.2H, Eosinophils (%) (Auto) 1.6, Basophils (%) (Auto) 0.3, Neutrophils # (Auto) 4.0, Lymphocytes # (Auto) 1.9, Monocytes # (Auto) 0.8, Eosinophils # (Auto) 0.1, Basophils # (Auto) 0.0, Nucleated Red Blood Cells % (auto) 0.0, Anion Gap 4L, Glomerular Filtration Rate > 60.0, Calcium Level 9.5, Total Bilirubin 0.2, Aspartate Amino Transf (AST/SGOT) 37, Alanine Aminotransferase (ALT/SGPT) 68, Alkaline Phosphatase 77, Total Protein 6.0L, Albumin 3.1L, Albumin/Globulin Ratio 1.1L CBC/BMP Laboratory Tests 02/21/21 06:17 SRIDHAR RAMON MD February 21, 2021 15:56
[2021-02-21 17:38] VITALS: BP 167/84
[2021-02-21 20:00] VITALS: BP 140/66
[2021-02-21] MEDS: SENNA 8.6 MG TAB (SENOKOT) PO SCH (21:19)
[2021-02-21] MEDS: PANTOPRAZOLE 40MG TAB (PROTONIX) PO SCH (21:19)
[2021-02-21] MEDS: ATORVASTATIN 20 MG TAB PO SCH (21:19)
[2021-02-21] MEDS: hydrOXYzine 25 MG TAB PO SCH (21:19)
[2021-02-21] MEDS: RAMELTEON 8 MG TAB (ROZEREM) PO SCH (21:19)
[2021-02-22] VITALS: BP 138/60
[2021-02-22 05:23] VITALS: BP 128/61
[2021-02-22] MEDS: **hydrALAZINE HCL** 25 MG TAB PO SCH ×3 (05:43→17:26)
[2021-02-22] MEDS: COMBIVENT RESPIMAT 100-20MCG INHALER 4GM INH SCH ×3 (07:12→19:52)
[2021-02-22] MEDS: FOLIC ACID 1 MG TAB PO SCH (07:53)
[2021-02-22] MEDS: PANTOPRAZOLE 40MG TAB (PROTONIX) PO SCH ×2 (07:53→20:34)
[2021-02-22] MEDS: GABAPENTIN 300 MG CAP PO SCH ×3 (07:53→20:34)
[2021-02-22] MEDS: ACETAMINOPHEN TAB 650MG DOSE (2X325MG) PO PRN ×3 (07:53→20:37)
[2021-02-22] MEDS: ASPIRIN 81MG ENTERIC TABLET PO SCH (07:53)
[2021-02-22] MEDS: MAGIC MOUTHWASH SUSPENSION BTL SSP SCH ×3 (07:53→17:26)
[2021-02-22] MEDS: MAGNESIUM OXIDE 400MG TAB (MAG-OX) PO SCH ×2 (07:54→20:34)
[2021-02-22] MEDS: prednisoLONE (PRELONE) 15MG/5ML SYRUP UDC PO SCH ×2 (07:54→20:36)
[2021-02-22] MEDS: HEPARIN SOD (PORCINE) 5000UNITS/ML 1ML VIAL/SYRINGE SC SCH ×2 (07:54→20:35)
[2021-02-22] MEDS: METOPROLOL TART 12.5 MG PER 1/2 TAB PO SCH ×2 (07:54→20:35)
[2021-02-22] MEDS: DOCUSATE SODIUM 100MG CAPSULE PO SCH ×2 (07:54→20:34)
[2021-02-22] MEDS: THIAMINE 100 MG TAB PO SCH (07:55)
[2021-02-22] MEDS: MULTIVITAMINS/MINERALS THERAP 1 TAB PO SCH (07:55)
[2021-02-22] MEDS: amLODIPine 5 MG TAB PO SCH (07:55)
--- NOTE | 2021-02-22 08:42 | EEG ---
ELECTROENCEPHALOGRAM DATE: 02/20/2021 DIAGNOSIS: Altered mental status. EEG# [id number]. REFERRING PHYSICIAN: Lorenzo Keith MD. HISTORY: Patient is a 65-year-old woman who was admitted at [facility] due to altered mental status after she was found unresponsive on the floor. This EEG was done to rule out epileptic potential. She is currently taking aspirin, folic acid, thiamine, amlodipine, multivitamin, and has a history of alcoholism. TECHNICAL DESCRIPTION: This 21 EEG was recorded by 21-scalp, ear, and two EKG electrodes and was reviewed in bipolar and referential montages following reformatting in 10-20 international electrode placement system. INTERPRETATION: Patient was noted to be in awake and drowsy states during this EEG. Resting and awake background rhythm consisted of 8.5 Hz alpha activity measuring 15-40 microvolts in amplitude, which was symmetric and reactive to eye opening. Attenuation of posterior dominant rhythm was seen during transition into drowsiness. No sleep was achieved. Hyperventilation was not performed. Photic stimulation remained unremarkable. EKG revealed normal sinus rhythm. Frontal intermittent rhythmic delta activity was noted on several occasions lasting for 4-7 seconds. No clear epileptiform abnormalities were seen. No focal, lateralizing, or epileptiform abnormalities were seen. No relevant clinical activity was noted. CONCLUSION: This EEG in awake and drowsy states is abnormal due to presence of frontal intermittent rhythmic delta activity consistent with nonspecific and diffuse cerebral dysfunction, suggesting an encephalopathy due to multiple potential causes including toxic, metabolic, infectious, medication-related, or multifocal structure brain abnormalities. No epileptiform abnormalities were seen. Clinical correlation is recommended.
[2021-02-22 11:31] VITALS: BP 134/61
[2021-02-22] MEDS: LIDOCAINE VISCOUS 2% SOLN 15ML UDC SS PRN ×2 (11:32→20:34)
[2021-02-22 14:00] VITALS: BP 160/73
[2021-02-22 17:24] VITALS: BP 167/74
[2021-02-22 20:30] VITALS: BP 160/90
[2021-02-22] MEDS: RAMELTEON 8 MG TAB (ROZEREM) PO SCH (20:34)
[2021-02-22] MEDS: SENNA 8.6 MG TAB (SENOKOT) PO SCH (20:34)
[2021-02-22] MEDS: hydrOXYzine 25 MG TAB PO SCH (20:34)
[2021-02-22] MEDS: ATORVASTATIN 20 MG TAB PO SCH (20:35)
[2021-02-23] MEDS: **hydrALAZINE HCL** 25 MG TAB PO SCH ×4 (00:02→17:26)
[2021-02-23] MEDS: ACETAMINOPHEN TAB 650MG DOSE (2X325MG) PO PRN ×4 (05:13→20:49)
[2021-02-23] MEDS: LIDOCAINE VISCOUS 2% SOLN 15ML UDC SS PRN ×3 (05:13→20:32)
[2021-02-23 06:42] VITALS: BP 132/72
[2021-02-23] MEDS: COMBIVENT RESPIMAT 100-20MCG INHALER 4GM INH SCH ×3 (07:12→20:47)
[2021-02-23] MEDS: DOCUSATE SODIUM 100MG CAPSULE PO SCH ×2 (07:37→20:33)
[2021-02-23] MEDS: MAGIC MOUTHWASH SUSPENSION BTL SSP SCH ×3 (07:37→16:56)
[2021-02-23] MEDS: METOPROLOL TART 12.5 MG PER 1/2 TAB PO SCH ×2 (07:38→20:34)
[2021-02-23] MEDS: ASPIRIN 81MG ENTERIC TABLET PO SCH (07:38)
[2021-02-23] MEDS: THIAMINE 100 MG TAB PO SCH (07:38)
[2021-02-23] MEDS: PANTOPRAZOLE 40MG TAB (PROTONIX) PO SCH ×2 (07:38→20:33)
[2021-02-23] MEDS: MULTIVITAMINS/MINERALS THERAP 1 TAB PO SCH (07:38)
[2021-02-23] MEDS: amLODIPine 5 MG TAB PO SCH (07:39)
[2021-02-23] MEDS: MAGNESIUM OXIDE 400MG TAB (MAG-OX) PO SCH ×2 (07:39→20:33)
[2021-02-23] MEDS: FOLIC ACID 1 MG TAB PO SCH (07:39)
[2021-02-23] MEDS: prednisoLONE (PRELONE) 15MG/5ML SYRUP UDC PO SCH ×2 (07:39→20:32)
[2021-02-23] MEDS: GABAPENTIN 300 MG CAP PO SCH ×3 (07:39→20:33)
[2021-02-23] MEDS: HEPARIN SOD (PORCINE) 5000UNITS/ML 1ML VIAL/SYRINGE SC SCH ×2 (07:40→20:33)
[2021-02-23 14:00] VITALS: BP 139/67
[2021-02-23 20:30] VITALS: BP 133/67
[2021-02-23] MEDS: SENNA 8.6 MG TAB (SENOKOT) PO SCH (20:33)
[2021-02-23] MEDS: RAMELTEON 8 MG TAB (ROZEREM) PO SCH (20:33)
[2021-02-23] MEDS: ATORVASTATIN 20 MG TAB PO SCH (20:33)
[2021-02-23] MEDS: hydrOXYzine 25 MG TAB PO SCH (20:33)
[2021-02-24] MEDS: ACETAMINOPHEN TAB 650MG DOSE (2X325MG) PO PRN ×4 (01:33→20:14)
[2021-02-24 05:37] VITALS: BP 151/81
[2021-02-24] MEDS: **hydrALAZINE HCL** 25 MG TAB PO SCH ×4 (05:45→17:23)
[2021-02-24] MEDS: COMBIVENT RESPIMAT 100-20MCG INHALER 4GM INH SCH ×3 (07:16→21:45)
[2021-02-24 08:00] VITALS: BP 136/61
[2021-02-24] MEDS: prednisoLONE (PRELONE) 15MG/5ML SYRUP UDC PO SCH ×2 (08:25→20:15)
[2021-02-24] MEDS: MAGIC MOUTHWASH SUSPENSION BTL SSP SCH ×3 (08:25→17:22)
[2021-02-24] MEDS: HEPARIN SOD (PORCINE) 5000UNITS/ML 1ML VIAL/SYRINGE SC SCH ×2 (08:26→20:15)
[2021-02-24] MEDS: FOLIC ACID 1 MG TAB PO SCH (08:26)
[2021-02-24] MEDS: MAGNESIUM OXIDE 400MG TAB (MAG-OX) PO SCH ×2 (08:26→20:16)
[2021-02-24] MEDS: LIDOCAINE VISCOUS 2% SOLN 15ML UDC SS PRN ×3 (08:26→20:13)
[2021-02-24] MEDS: DOCUSATE SODIUM 100MG CAPSULE PO SCH ×2 (08:27→20:13)
[2021-02-24] MEDS: ASPIRIN 81MG ENTERIC TABLET PO SCH (08:27)
[2021-02-24] MEDS: MULTIVITAMINS/MINERALS THERAP 1 TAB PO SCH (08:27)
[2021-02-24] MEDS: THIAMINE 100 MG TAB PO SCH (08:27)
[2021-02-24] MEDS: GABAPENTIN 300 MG CAP PO SCH ×3 (08:27→20:14)
[2021-02-24] MEDS: PANTOPRAZOLE 40MG TAB (PROTONIX) PO SCH ×2 (08:27→20:14)
[2021-02-24] MEDS: METOPROLOL TART 12.5 MG PER 1/2 TAB PO SCH ×2 (08:28→20:14)
[2021-02-24] MEDS: amLODIPine 5 MG TAB PO SCH (08:28)
[2021-02-24 11:50] VITALS: BP 143/80
[2021-02-24 14:00] VITALS: BP 134/63
[2021-02-24 17:00] VITALS: BP 153/75
[2021-02-24 20:00] VITALS: BP 166/72
[2021-02-24] MEDS: ATORVASTATIN 20 MG TAB PO SCH (20:13)
[2021-02-24] MEDS: SENNA 8.6 MG TAB (SENOKOT) PO SCH (20:13)
[2021-02-24] MEDS: RAMELTEON 8 MG TAB (ROZEREM) PO SCH (20:14)
[2021-02-24] MEDS: hydrOXYzine 25 MG TAB PO SCH (20:14)
[2021-02-25] VITALS (8 sets, daily range): BP systolic 127–182; BP diastolic 62–87
[2021-02-25] MEDS: **hydrALAZINE HCL** 25 MG TAB PO SCH ×4 (00:08→17:50)
[2021-02-25] MEDS: ACETAMINOPHEN TAB 650MG DOSE (2X325MG) PO PRN ×4 (00:14→20:15)
[2021-02-25] MEDS: COMBIVENT RESPIMAT 100-20MCG INHALER 4GM INH SCH ×3 (07:25→20:04)
[2021-02-25] MEDS: MAGIC MOUTHWASH SUSPENSION BTL SSP SCH ×3 (07:54→16:55)
[2021-02-25] MEDS: prednisoLONE (PRELONE) 15MG/5ML SYRUP UDC PO SCH ×2 (07:55→20:16)
[2021-02-25] MEDS: DOCUSATE SODIUM 100MG CAPSULE PO SCH ×2 (07:56→20:14)
[2021-02-25] MEDS: HEPARIN SOD (PORCINE) 5000UNITS/ML 1ML VIAL/SYRINGE SC SCH ×2 (07:56→20:19)
[2021-02-25] MEDS: ASPIRIN 81MG ENTERIC TABLET PO SCH (07:56)
[2021-02-25] MEDS: LIDOCAINE VISCOUS 2% SOLN 15ML UDC SS PRN ×2 (07:56→20:15)
[2021-02-25] MEDS: GABAPENTIN 300 MG CAP PO SCH ×3 (07:57→20:16)
[2021-02-25] MEDS: PANTOPRAZOLE 40MG TAB (PROTONIX) PO SCH ×2 (07:57→20:16)
[2021-02-25] MEDS: MAGNESIUM OXIDE 400MG TAB (MAG-OX) PO SCH ×2 (07:57→20:16)
[2021-02-25] MEDS: THIAMINE 100 MG TAB PO SCH (07:57)
[2021-02-25] MEDS: FOLIC ACID 1 MG TAB PO SCH (07:57)
[2021-02-25] MEDS: MULTIVITAMINS/MINERALS THERAP 1 TAB PO SCH (07:57)
[2021-02-25] MEDS: METOPROLOL TART 12.5 MG PER 1/2 TAB PO SCH (07:58)
[2021-02-25] MEDS: amLODIPine 5 MG TAB PO SCH ×2 (07:58→20:18)
[2021-02-25] MEDS ORDERED: OXYMETAZOLINE 0.05% NASAL SPRAY (AFRIN) PRN (09:40)
[2021-02-25 16:53] LABS: BASO # 0.1 10^3/uL (0.0-0.2); BASO % 0.3 % (0.0-1.0); HEMOGLOBIN 13.5 g/dl (12.0-15.5); LYMPH # 1.8 10^3/uL (1.5-5.0); LYMPH % 10.9 % (24.0-44.0); MEAN CORPUSCULAR HEMOGLOBIN 33.2 pg (27.0-33.0); MEAN CORPUSCULAR HGB CONC 32.1 g/dl (32.0-36.5); MEAN CORPUSCULAR VOLUME 103.2 fl (80.0-96.0); MONO # 0.9 10^3/uL (0.0-0.8); MONO % 5.2 % (2.0-8.0); NEUTROPHILS # 13.7 10^3/uL (1.5-8.5); PLATELET COUNT, AUTOMATED 416 10^3/uL (150-450); RED BLOOD COUNT 4.07 10^6/uL (4.00-5.40); WHITE BLOOD COUNT 16.7 10^3/uL (4.0-10.0)
[2021-02-25 17:22] LABS: BLOOD UREA NITROGEN 28 MG/DL (7-18); CALCIUM LEVEL 9.3 MG/DL (8.8-10.2); CARBON DIOXIDE LEVEL 29 MEQ/L (21-32); CHLORIDE LEVEL 104 MEQ/L (98-107); CREATININE FOR GFR 0.83 MG/DL (0.55-1.30); GLOMERULAR FILTRATION RATE > 60.0 (>45); GLUCOSE, FASTING 116 MG/DL (70-100); POTASSIUM SERUM 4.7 MEQ/L (3.5-5.1); SODIUM LEVEL 140 MEQ/L (136-145)
[2021-02-25] MEDS: LORATADINE 10 MG TAB PO SCH (17:45)
[2021-02-25] MEDS: FLUTICASONE PROP 0.05% NASAL SPRAY 16 GM (FLONASE) NARES SCH (20:14)
[2021-02-25] MEDS: SODIUM CHLORIDE NASAL 0.65% SPRAY BTL (OCEAN) SCH (20:14)
[2021-02-25] MEDS: hydrOXYzine 25 MG TAB PO SCH (20:14)
[2021-02-25] MEDS: SENNA 8.6 MG TAB (SENOKOT) PO SCH (20:14)
[2021-02-25] MEDS: RAMELTEON 8 MG TAB (ROZEREM) PO SCH (20:15)
[2021-02-25] MEDS: ATORVASTATIN 20 MG TAB PO SCH (20:16)
[2021-02-25] MEDS: POLYSPORIN TOPICAL OINTMENT 15GM TOP SCH (20:19)
[2021-02-25] MEDS: METOPROLOL TART 25 MG TABLET PO SCH (20:21)
[2021-02-26] VITALS: BP 141/66
[2021-02-26] MEDS: ACETAMINOPHEN TAB 650MG DOSE (2X325MG) PO PRN ×3 (00:10→10:18)
[2021-02-26] MEDS: **hydrALAZINE HCL** 25 MG TAB PO SCH ×3 (00:10→11:50)
[2021-02-26 05:08] VITALS: BP 115/56
[2021-02-26] MEDS: MAGIC MOUTHWASH SUSPENSION BTL SSP SCH ×2 (06:23→12:21)
[2021-02-26] MEDS: LORATADINE 10 MG TAB PO SCH (07:55)
[2021-02-26] MEDS: prednisoLONE (PRELONE) 15MG/5ML SYRUP UDC PO SCH (07:55)
[2021-02-26] MEDS: ASPIRIN 81MG ENTERIC TABLET PO SCH (07:55)
[2021-02-26] MEDS: PANTOPRAZOLE 40MG TAB (PROTONIX) PO SCH (07:55)
[2021-02-26] MEDS: DOCUSATE SODIUM 100MG CAPSULE PO SCH (07:55)
[2021-02-26] MEDS: GABAPENTIN 300 MG CAP PO SCH (07:55)
[2021-02-26] MEDS: amLODIPine 5 MG TAB PO SCH (07:56)
[2021-02-26] MEDS: MULTIVITAMINS/MINERALS THERAP 1 TAB PO SCH (07:56)
[2021-02-26] MEDS: THIAMINE 100 MG TAB PO SCH (07:56)
[2021-02-26] MEDS: METOPROLOL TART 25 MG TABLET PO SCH (07:57)
[2021-02-26] MEDS: FOLIC ACID 1 MG TAB PO SCH (07:57)
[2021-02-26] MEDS: MAGNESIUM OXIDE 400MG TAB (MAG-OX) PO SCH (07:58)
[2021-02-26] MEDS: SODIUM CHLORIDE NASAL 0.65% SPRAY BTL (OCEAN) SCH (07:58)
[2021-02-26] MEDS: FLUTICASONE PROP 0.05% NASAL SPRAY 16 GM (FLONASE) NARES SCH (07:58)
[2021-02-26] MEDS: POLYSPORIN TOPICAL OINTMENT 15GM TOP SCH (07:58)
[2021-02-26] MEDS: COMBIVENT RESPIMAT 100-20MCG INHALER 4GM INH SCH ×2 (08:00→12:00)
[2021-02-26 08:49] LABS: BASO % 0.3 % (0.0-1.0); EOS # 0.1 10^3/uL (0.0-0.5); EOS % 0.8 % (0.0-3.0); HEMATOCRIT 42.6 % (36.0-47.0); HEMOGLOBIN 13.8 g/dl (12.0-15.5); LYMPH % 22.8 % (24.0-44.0); MEAN CORPUSCULAR HEMOGLOBIN 33.2 pg (27.0-33.0); MEAN CORPUSCULAR HGB CONC 32.4 g/dl (32.0-36.5); MEAN CORPUSCULAR VOLUME 102.4 fl (80.0-96.0); MONO # 0.8 10^3/uL (0.0-0.8); MONO % 6.1 % (2.0-8.0); NEUTROPHILS # 8.9 10^3/uL (1.5-8.5); NEUTROPHILS % 68.1 % (36.0-66.0); PLATELET COUNT, AUTOMATED 417 10^3/uL (150-450); RED BLOOD COUNT 4.16 10^6/uL (4.00-5.40); WHITE BLOOD COUNT 13.1 10^3/uL (4.0-10.0)
[2021-02-26] MEDS ORDERED: LACTOBACILLUS ACIDOPHILUS CAP (BACID) PO SCH (09:00)
[2021-02-26] MEDS ORDERED: CEFDINIR 300 MG CAP (OMNICEF) PO SCH (09:20)
[2021-02-26] MEDS ORDERED: HYDR25TA PO (09:24)
[2021-02-26] MEDS ORDERED: THIA100TA PO (09:24)
[2021-02-26] MEDS ORDERED: FLUTISP NARES (09:24)
[2021-02-26] MEDS ORDERED: GABA-282 PO (09:24)
[2021-02-26] MEDS ORDERED: MAGN400T2 PO (09:24)
[2021-02-26] MEDS ORDERED: CEFD300CAP PO (09:24)
[2021-02-26] MEDS ORDERED: FOLI1TAB11 PO (09:24)
[2021-02-26] MEDS ORDERED: CLAR10TA7 PO (09:24)
[2021-02-26] MEDS ORDERED: AMLO1TAB24 PO (09:24)
[2021-02-26] MEDS ORDERED: PANT40TA29 PO (09:24)
[2021-02-26] MEDS ORDERED: PRED15EL PO (09:24)
[2021-02-26] MEDS ORDERED: ASPI-551 PO (09:24)
[2021-02-26] MEDS ORDERED: RISATAB3 PO (09:24)
[2021-02-26] MEDS ORDERED: METO1TAB87 PO (09:24)
[2021-02-26] MEDS ORDERED: MAGICMW SSP (09:24)
--- NOTE | 2021-02-26 09:34 | IPNPDOC ---
PM&R Progress Note DATE OF SERVICE: February 25, 2021 [employer] Progress Note Subjective: Patient reporting her ears feel itchy internally and that she feels she is having allergies. She denies ear pain. She reports she has headaches occasional ly that respond to tylenol, but would like to try increasing her gabapentin dosing. REVIEW OF SYSTEMS: The following is a completed review of systems and has been reviewed. Review of systems otherwise unremarkable. PAIN: Patient self reports intermittent headache that responds to tylenol EYES: No recent vision changes EARS, NOSE, & THROAT:+ throat pain, +odynophagia CARDIOVASCULAR: Denies chest pain or palpitations PULMONARY: Denies shortness of breath GASTROINTESTINAL: Denies constipation/diarrhea GENITOURINARY: denies dysuria MUSCULOSKELETAL: generalized weakness NEUROLOGICAL: +tremor (improving) HEMATOLOGICAL: denies easy bruising. SKIN: +oral ulcers (improving) PSYCHIATRIC: Unremarkable All other review of systems found to be negative. PHYSICAL EXAMINATION: VITAL SIGNS: Please see below. GENERAL: Pleasant and cooperative. No acute distress. HEENT: PERRL. Extraocular movements intact. Clear conjunctiva. +tongue ulcers CARDIOVASCULAR:Regular rate and rhythm. No murmurs, rubs, or gallops LUNGS: Clear to auscultation bilaterally. No wheezes. No rhonchi ABDOMEN: Soft, nontender, nondistended. Positive bowel sounds. Normal active bowel sounds NEUROLOGICAL: Alert and oriented times three. Cranial nerves II through XII grossly intact. Sensation grossly intact (-) dysmetria EXTREMITIES: 5\5 strength bilateral upper extremities. 5\5 strength right lower extremity. 5/5 strength in left lower extremity. Skin- left posterior ear small abscess, dry with exudate ASSESSMENT:65-year-old F with past medical history of HTN and etoh abuse who presents status post stroke PLAN: 1.Rehab- PT/OT advance mobility and ADLs, strengthen/stretch/maintain ROM all 4limbs- ambulating without AD -DIRECTOR OF ELEMENTARY EDUCATION for cog and swallow 2. Neuro- s/p right parietal and occipital strokes, c/u ASA and statin for secondary stroke recovery- patient progressing well, no new focal deficits -s/p CIWA protocol for etoh abuse, c/i thiamine, folic acid for cog enhancement -eeg negative for epileptiform activity 3. Cardiac- hx of HTN c/u BP meds, adjust prn - HLD c/u statin 4. Resp- hx of smoking, c/u combivent , monitor for infection -patient reporting sensation of itchiness inside her ears, will start claritin, flonase and nasal saline spray 5. ENT- oral lesions with odynophagia possibly viral/nutrient deficiency/cancer, c/u mouth wash, f/u ENT outpatient 6. DVT ppx- heparin 7. GI- recent CT/abd pelvis suggestive of gastritis, protonix BID 8. DVT ppx heparin and TEDs 9. Pain- tylenol prn, will increase gabapentin to 900mg TID for headaches 10. Leukocytosis- patient afebrile, does not appear ill, however will repeat cbc tomorrow, may be due to small left posterior ear abscess (wound car orders placed) vs pharyngitis 10. Dispo- 02-26-21 to home, progressing towards goals quickly Allergies Coded Allergies: No Known Allergies (Verified Allergy, Unknown, 02/15/21) Vital Signs Vital Signs Date Time Temp Pulse Resp B/P (MAP) Pulse Ox O2 Delivery O2 Flow Rate FiO2 02/26/21 07:56 60 118/56 02/26/21 05:08 97.0 18 96 Room Air Laboratory Data CBC/BMP Laboratory Tests 02/25/21 16:39 02/26/21 08:27 Labs 24H Laboratory Tests 2 02/25/21 16:39: Immature Granulocyte % (Auto) 1.6, Neutrophils (%) (Auto) 82.0H, Lymphocytes (%) (Auto) 10.9L, Monocytes (%) (Auto) 5.2, Eosinophils (%) (Auto) 0.0, Basophils (%) (Auto) 0.3, Neutrophils # (Auto) 13.7H, Lymphocytes # (Auto) 1.8, Monocytes # (Auto) 0.9H, Eosinophils # (Auto) 0.0, Basophils # (Auto) 0.1, Nucleated Red Blood Cells % (auto) 0.0, Anion Gap 7L, Glomerular Filtration Rate > 60.0, Calcium Level 9.3 02/26/21 08:27: Immature Granulocyte % (Auto) 1.9, Neutrophils (%) (Auto) 68.1H, Lymphocytes (%) (Auto) 22.8L, Monocytes (%) (Auto) 6.1, Eosinophils (%) (Auto) 0.8, Basophils (%) (Auto) 0.3, Neutrophils # (Auto) 8.9H, Lymphocytes # (Auto) 3.0, Monocytes # (Auto) 0.8, Eosinophils # (Auto) 0.1, Basophils # (Auto) 0.0, Nucleated Red Blood Cells % (auto) 0.0 Current Medications Current Medications Current Medications Medications (Trade) Dose Ordered Sig/Robert Route PRN Reason Start Time Stop Time Status Last Admin Dose Admin Acetaminophen (Tylenol Tab) 650 mg Q4HP PRN PO fever/MILD PAIN (PS 1-4) 02/20/21 18:35 02/26/21 06:22 Albuterol/ Ipratropium (Combivent Respimat 100-20mcg) 1 puff RTID INH 02/21/21 14:00 02/25/21 20:04 Amlodipine Besylate (Norvasc) 5 mg BID PO 02/25/21 21:00 02/26/21 07:56 Amlodipine Besylate (Norvasc) 5 mg DAILY PO 02/21/21 09:00 02/25/21 18:15 DC 02/25/21 07:58 Aspirin (Ecotrin) 81 mg DAILY PO 02/21/21 09:00 02/26/21 07:55 Atorvastatin Calcium (Lipitor) 40 mg QHS PO 02/21/21 21:00 02/25/21 20:16 Bacitracin/ Polymyxin B Sulfate (Polysporin Top Oint) apply to wound beh... BID TOP 02/25/21 21:00 02/26/21 07:58 Bisacodyl (Dulcolax Suppository) 10 mg DAILYPRN PRN [place] CONSTIPATION 02/20/21 18:35 Cefdinir (Omnicef) 300 mg BID PO 02/26/21 09:20 Docusate Sodium (Colace) 100 mg BID PO 02/20/21 21:00 02/26/21 07:55 Fluticasone Propionate (Flonase 0.05% Nasal Blue [place]) 1 spray BID NARES 02/25/21 21:00 02/26/21 07:58 Folic Acid (Folic Acid) 1 mg DAILY PO 02/21/21 09:00 02/26/21 07:57 Gabapentin (Neurontin) 600 mg TID PO 02/20/21 21:00 02/25/21 17:01 DC 02/25/21 16:19 Gabapentin (Neurontin) 900 mg TID PO 02/25/21 21:00 02/26/21 07:55 Heparin Sodium (Porcine) (Heparin) 5,000 units Q12H SC 02/20/21 21:00 02/26/21 07:41 DC 02/25/21 20:19 Hydralazine HCl (Apresoline) 25 mg Q6H PO 02/21/21 00:00 02/26/21 00:10 Hydroxyzine HCl (Atarax) 25 mg QHS PO 02/21/21 21:00 02/25/21 20:14 Lactobacillus Acidophilus (Bacid) 1 ea TID PO 02/26/21 09:00 Lidocaine HCl (Lidocaine 2% Visc Soln) 5 ml QIDP PRN SS SORE THROAT 02/20/21 18:35 02/25/21 20:15 Lidocaine/ Diphenhydr/Alum/ Mg/Simeth (Magic Mouthwash) 5ML AC SSP 02/21/21 07:30 02/26/21 06:23 Loratadine (Claritin) 10 mg DAILY PO 02/25/21 17:00 02/26/21 07:55 Magnesium Oxide (Mag-Ox) 400 mg BID PO 02/21/21 09:00 02/26/21 07:58 Metoprolol Tartrate (Lopressor) 12.5 mg BID PO 02/21/21 09:00 02/25/21 18:15 DC 02/25/21 07:58 Metoprolol Tartrate (Lopressor) 25 mg BID PO 02/25/21 21:00 02/26/21 07:57 Multivitamins (Theragram-M) 1 tab DAILY PO 02/21/21 09:00 02/26/21 07:56 Oxymetazoline HCl (Afrin) 2 spray ASDIRECTED PRN NA SEE LABEL COMMENTS 02/25/21 09:40 Pantoprazole Sodium (Protonix) 40 mg BID PO 02/21/21 21:00 02/26/21 07:55 Pantoprazole Sodium (Protonix) 40 mg DAILY PO 02/21/21 09:00 02/21/21 11:11 DC 02/21/21 07:42 Potassium Chloride (Micro-K Extencaps) 10 meq DAILY PO 02/21/21 09:00 02/21/21 11:03 DC 02/21/21 07:41 Prednisolone (Prelone Syrup) 15 mg BID PO 02/20/21 21:00 02/26/21 07:55 Ramelteon (Rozerem) 8 mg QHS PO 02/20/21 21:00 02/25/21 20:15 Senna (Senokot) 1 tab QHS PO 02/20/21 21:00 02/25/21 20:14 Sodium Chloride ([place] Nasal Blue Eye) 2 spray TID NA 02/25/21 21:00 02/26/21 07:58 Thiamine HCl (Thiamine HCl) 100 mg DAILY PO 02/21/21 09:00 02/26/21 07:56 SHAHEEN TOVAR MD February 26, 2021 09:33
--- NOTE | 2021-02-26 11:31 | PMRDS ---
NAME: PAYTON COELHO [facility] WT ID#: [id number] JOB: [id number] DON: 02/26/2021 ACCT: [id number] DOCTOR: SHAHEEN TOVAR MD PMR DISCHARGE SUMMARY DATE OF ADMISSION: 02/20/2021 DATE OF DISCHARGE: 02/26/2021 CHIEF COMPLAINT/DISCHARGE DIAGNOSIS: Stroke. HISTORY OF PRESENT ILLNESS: A 65-year-old female with a past medical history alcohol abuse, smoking, and back pain who presented to [facility] ED on 02/15/2021 with altered mental status, bruising, and oral pain. CTH showed "small area of subcortical edema in the right frontal lobe of uncertain etiology" with follow up MRI showing "two small areas of restricted diffusion in the high right parietal lobe measuring up to 4 mm representing embolic acute infarcts. Additionally, there is a small area of restricted diffusion in the right occipital lobe, may represent another small area of acute infarct." She was placed on CIWA protocol and evaluated by Neurology who recommended aspirin and statin in addition to EEG. She complained of odynophagia and was noted to have oral ulcers. ENT evaluated, however, was unable to perform laryngoscopy. ENT did recommend Magic Mouthwash and steroid wash and follow up outpatient. She was noted to have mobility and ADL impairments and deemed medically and functionally stable for discharge to ARU on 02/20/2021. PAST MEDICAL HISTORY: As per HPI. HOSPITAL COURSE: Patient was admitted and enrolled in a comprehensive PT/OT, speech and language pathology program. She received 24 hour nursing supervision, and weekly team meetings were held to discuss her progress. Patient's tongue pain did gradually improve with oral care. She did, however, continue to complain of persistent throat pain and pain with swallowing. On 02/26/2012, she had leukocytosis with no fever or chills. She was tested for Strep, which was negative. She was ultimately discharged on cefdinir for pharyngitis. Patient was also noted to have a small left posterior ear abscess, possibly pressure ulcer. Patient was instructed on how to provide wound care and provided with follow up with Dr. Ortiz. She complained of intermittent headaches which did respond to Tylenol and an increased dose of gabapentin. EEG was performed which was negative for epileptiform activity. She was continued on thiamine and folic acid in addition to aspirin and statin for secondary stroke prevention. She made steady gains in therapy and was deemed medically and functionally stable to return home. DISCHARGE MEDICATIONS: As per instructions. FUNCTIONAL HISTORY: On discharge, patient was independent for functional transfers, able to ambulate 1500 feet at a standby assist level. Thank you for this referral.
[2021-02-26 11:50] VITALS: BP 129/63
[2021-02-26 14:00] VITALS: BP 135/62
== END 2021-02-26 14:45 | disposition home or self-care (01) | DRG 57 ==
LOC: M PM&R 17:15
PROVIDERS: ADMIT Physical Medicine & Rehabilitation; ATTEND Physical Medicine & Rehabilitation
DX: I69.398 Other sequelae of cerebral infarction (principal); M62.82 Rhabdomyolysis; K14.0 Glossitis; F10.10 Alcohol abuse, uncomplicated; Z79.82 Long term (current) use of aspirin; Z79.899 Other long term (current) drug therapy; F17.200 Nicotine dependence, unspecified, uncomplicated; I10 Essential (primary) hypertension

== ENCOUNTER 2023-05-06 10:43 | Day surgery (SDC) | payer OTHER ==
[~2023-05-06] VITALS: Ht 167.6 cm; Wt 69.2 kg
[~2023-05-06 10:43] MED LIST changes: +ACET1TAB55 PO; +AMLO1TAB24 PO; +ASPI-551 PO; +BSS IRRIG/VANCO(10MG)/TOBRA(5MG)/EPINEPH(1:1000-0.5CC)500ML BAG-ORONLY IR ONE; +CEFD300CAP PO; +CEFUROXIME 1MG/0.1ML INTRACAMERAL INJ As Ordered ONE; +CLAR10TA7 PO; +CYCLOPENTOLATE 1% OPHTH SOLN 2ML BTL OD SCH; +FLUO20CA22 PO; +FLUT50SP17 NARES; +FOLI1TAB11 PO; +GABA-282 PO; +HYDR25TA PO; +LIDOCAINE 1% SDV 5ML VIAL As Ordered ONE; +LIDOCAINE 3.5 % 1ML OPHTH TOPICAL GEL OU ONE; +MAGICMW SSP; +MAGN400T2 PO; +METO1TAB87 PO; +MIDAZOLAM INJ 2MG/2ML VIAL As Ordered ONE; +OFLOXACIN 0.3 % (OCUFLOX) OPTH SOL 5ML OD ONE; +PHENYLEPHRINE 10% OPHTH SOL 5ML OD PRN; +PHENYLEPHRINE 2.5% OPHTH SOL 2ML OD SCH; +PRED15EL PO; +PRED15SO24 PO; +RAME8TAB2 PO; +RISATAB3 PO; +THIA100TA PO; +TRAZ-252 PO; +TROPICAMIDE 1% OPHTH SOLN 15ML OD SCH; +VITMTA PO
[2023-05-06 13:40] VITALS: BP 117/63; TEMP 97.4; O2SAT 94
== END 2023-05-06 14:00 | disposition home or self-care (01) ==
LOC: M SDC 10:43
PROVIDERS: ATTEND Ophthalmology
DX: H25.12 Age-related nuclear cataract, left eye (principal); I10 Essential (primary) hypertension; K21.9 Gastro-esophageal reflux disease without esophagitis; F41.9 Anxiety disorder, unspecified; F03.90 Unspecified dementia, unspecified severity, without behavioral disturbance, psychotic disturbance, mood disturbance, and anxiety; F17.210 Nicotine dependence, cigarettes, uncomplicated; Z79.84 Long term (current) use of oral hypoglycemic drugs; Z79.899 Other long term (current) drug therapy
CPT/HCPCS: 66984; J0697; J2250; V2632

== ENCOUNTER 2023-05-20 09:39 | Day surgery (SDC) | payer OTHER ==
[~2023-05-20] VITALS: Ht 167.6 cm; Wt 69.9 kg
[~2023-05-20 09:39] MED LIST changes: -CYCLOPENTOLATE 1% OPHTH SOLN 2ML BTL OD SCH; +CYCLOPENTOLATE 1% OPHTH SOLN 2ML BTL OS SCH; -MIDAZOLAM INJ 2MG/2ML VIAL As Ordered ONE; -OFLOXACIN 0.3 % (OCUFLOX) OPTH SOL 5ML OD ONE; +OFLOXACIN 0.3 % (OCUFLOX) OPTH SOL 5ML OS ONE; -PHENYLEPHRINE 10% OPHTH SOL 5ML OD PRN; +PHENYLEPHRINE 10% OPHTH SOL 5ML OS PRN; -PHENYLEPHRINE 2.5% OPHTH SOL 2ML OD SCH; +PHENYLEPHRINE 2.5% OPHTH SOL 2ML OS SCH; -TROPICAMIDE 1% OPHTH SOLN 15ML OD SCH; +TROPICAMIDE 1% OPHTH SOLN 15ML OS SCH
[2023-05-20] MEDS ORDERED: PANT40TA29 PO (11:42)
[2023-05-20] MEDS ORDERED: MIDAZOLAM INJ 2MG/2ML VIAL As Ordered ONE (12:33)
[2023-05-20] MEDS ORDERED: fentaNYL 100 MCG/2 ML INJECTION As Ordered ONE (12:33)
[2023-05-20 12:43] VITALS: BP 126/65; TEMP 96.9; O2SAT 95
== END 2023-05-20 13:12 | disposition home or self-care (01) ==
LOC: M SDC 09:39
PROVIDERS: ATTEND Ophthalmology
DX: H25.12 Age-related nuclear cataract, left eye (principal); F90.9 Attention-deficit hyperactivity disorder, unspecified type; F32.A Depression, unspecified; J44.9 Chronic obstructive pulmonary disease, unspecified; E78.5 Hyperlipidemia, unspecified; I10 Essential (primary) hypertension; F41.0 Panic disorder [episodic paroxysmal anxiety]; R91.1 Solitary pulmonary nodule; Z86.73 Personal history of transient ischemic attack (TIA), and cerebral infarction without residual deficits; K56.7 Ileus, unspecified; Z79.899 Other long term (current) drug therapy; Z79.82 Long term (current) use of aspirin
CPT/HCPCS: 66984; J0697; J2250; J3010; V2632

== ENCOUNTER 2024-10-18 09:00 | Emergency (ER) | payer MEDICARE, OTHER ==
[~2024-10-18] VITALS: Ht 167.6 cm; Wt 80.0 kg
[~2024-10-18 09:00] MED LIST changes: -BSS IRRIG/VANCO(10MG)/TOBRA(5MG)/EPINEPH(1:1000-0.5CC)500ML BAG-ORONLY IR ONE; +BUPR-597 PO; -BUPR300T92 PO; -CEFUROXIME 1MG/0.1ML INTRACAMERAL INJ As Ordered ONE; -CYCLOPENTOLATE 1% OPHTH SOLN 2ML BTL OS SCH; +FLUO-365 PO; -FLUO20CA22 PO; -FLUT50SP17 NARES; +FLUTISP NARES; +GABA-1172 PO; +GABA-1490 PO; -GABA-282 PO; -GABA600T4 PO; -HYDR25TA PO; +HYDR25TA88 PO; -LIDOCAINE 1% SDV 5ML VIAL As Ordered ONE; -LIDOCAINE 3.5 % 1ML OPHTH TOPICAL GEL OU ONE; -OFLOXACIN 0.3 % (OCUFLOX) OPTH SOL 5ML OS ONE; -PHENYLEPHRINE 10% OPHTH SOL 5ML OS PRN; -PHENYLEPHRINE 2.5% OPHTH SOL 2ML OS SCH; -TROPICAMIDE 1% OPHTH SOLN 15ML OS SCH
[2024-10-18] MEDS: ONDANSETRON 4MG ORAL DISINTEGRATING TAB PO ONE (10:42)
[2024-10-18] MEDS: SIMETHICONE 80MG CHEW TAB PO ONE (10:42)
[2024-10-18] MEDS: NORCO, ANEXSIA 5/325MG TABLET (HYDROcodone/ACETAMINOPHEN) PO ONE (11:54)
[2024-10-18 12:03] VITALS: BP 157/81; TEMP 97.3; O2SAT 96
[2024-10-18] MEDS ORDERED: SIME80CH5 PO (12:15)
[2024-10-18] MEDS ORDERED: ONDA-282 PO (12:15)
[2024-10-18] MEDS ORDERED: HYDR-3713 PO (12:15)
== END 2024-10-18 12:44 | disposition home or self-care (01) ==
LOC: M ED 09:00 → EDBD 09:00 → M ED 12:44
DX: S22.42XA Multiple fractures of ribs, left side, initial encounter for closed fracture (principal); W19.XXXA Unspecified fall, initial encounter; K21.9 Gastro-esophageal reflux disease without esophagitis; I10 Essential (primary) hypertension; Z86.79 Personal history of other diseases of the circulatory system; Z79.1 Long term (current) use of non-steroidal anti-inflammatories (NSAID); Z79.83 Long term (current) use of bisphosphonates; Z79.4 Long term (current) use of insulin; Z79.899 Other long term (current) drug therapy; Y92.009 Unspecified place in unspecified non-institutional (private) residence as the place of occurrence of the external cause; Y93.89 Activity, other specified; Y99.9 Unspecified external cause status